=== PATIENT | male | born 1960 | race Caucasian/White ===

== ENCOUNTER → 2017-02-03 | Outpatient (CLI) | payer BC ==
[~2017-02-03] MED LIST: NAPR500T PO; PRIL20TA2 PO; ROBA500T PO
[2017-02-03 14:17] LABS: BASO # 0.1 K/mm3 (0.0-0.2); BASO % 0.5 % (0.0-1.0); EOS # 0.2 K/mm3 (0.0-0.50); EOS % 1.4 % (0.0-3.0); LARGE UNSTAINED CELL # 0.3 K/mm3 (0.0-0.4); LARGE UNSTAINED CELL % 2.3 % (0.0-4.0); LYMPH # 7.8 K/mm3 (1.5-4.5); LYMPH % 53.9 % (24.0-44.0); MEAN CORPUSCULAR HEMOGLOBIN 31.9 pg (27.0-33.0); MEAN CORPUSCULAR HGB CONC 34.3 g/dl (32.0-36.5); MEAN CORPUSCULAR VOLUME 92.9 fl (80.0-96.0); MONO # 0.5 K/mm3 (0.0-0.8); MONO % 3.5 % (0.0-5.0); NEUTROPHILS # 5.3 K/mm3 (1.8-7.7); NEUTROPHILS % 38.4 % (36.0-66.0); PLATELET COUNT, AUTOMATED 212 k/mm3 (150-450); RED CELL DISTRIBUTION WIDTH 12.6 % (11.5-14.5)
[2017-02-03 14:18] LABS: WHITE BLOOD COUNT 13.8 K/mm3 (4.0-10.0)
[2017-02-03 14:42] LABS: ALBUMIN/GLOBULIN RATIO 1.33 (1.00-1.93); ALKALINE PHOSPHATASE 58 U/L (45-117); ALT/SGPT 34 U/L (12-78); ANION GAP 9 MEQ/L (8-16); AST/SGOT 15 U/L (15-37); BILIRUBIN,TOTAL 0.7 MG/DL (0.2-1.0); BLOOD UREA NITROGEN 17 MG/DL (7-18); CALCIUM LEVEL 9.3 MG/DL (8.5-10.1); CARBON DIOXIDE LEVEL 26 MEQ/L (21-32); CHLORIDE LEVEL 101 MEQ/L (98-107); CHOLESTEROL LEVEL 198 MG/DL (<200); GLOMERULAR FILTRATION RATE > 60.0 (>56); GLUCOSE, FASTING 85 MG/DL (70-105); SODIUM LEVEL 136 MEQ/L (136-145); TRIGLYCERIDES LEVEL 83 MG/DL (<150)
== END ==
LOC: M SMT 08:20
PROVIDERS: ATTEND Family Medicine
DX: Z12.5 Encounter for screening for malignant neoplasm of prostate (principal); Z13.29 Encounter for screening for other suspected endocrine disorder; Z13.0 Encounter for screening for diseases of the blood and blood-forming organs and certain disorders involving the immune mechanism; Z13.220 Encounter for screening for lipoid disorders; F52.21 Male erectile disorder
CPT/HCPCS: 36415; 80053; 80061; 84402; 84403; 84443; 85025; G0103

== ENCOUNTER 2017-02-15 07:47 | Emergency (ER) | payer OTHER, BC ==
[~2017-02-15] VITALS: Ht 165.1 cm; Wt 74.1 kg
[2017-02-15] MEDS ORDERED: PRIL20TA2 PO (08:03)
[2017-02-15 09:14] VITALS: BP 170/84
[2017-02-15] MEDS ORDERED: ROBA500T PO (09:16)
[2017-02-15] MEDS ORDERED: NAPR500T PO (09:16)
== END 2017-02-15 09:25 | disposition home or self-care (01) ==
LOC: M ED 07:47
DX: M62.830 Muscle spasm of back (principal); V49.40XA Driver injured in collision with unspecified motor vehicles in traffic accident, initial encounter; Y92.410 Unspecified street and highway as the place of occurrence of the external cause; K21.9 Gastro-esophageal reflux disease without esophagitis; Z79.899 Other long term (current) drug therapy

== ENCOUNTER 2018-01-17 17:38 | Emergency (ER) | payer BC, OTHER ==
[2018-01-17 21:07] LABS: CHOLESTEROL LEVEL 211 MG/DL (<200); CHOLESTEROL RISK RATIO 3.296 (<5); HDL CHOLESTEROL 64 MG/DL (>40); LDL CHOLESTEROL 130.2 MG/DL (<100); NON-HDL-C 147 MG/DL; TRIGLYCERIDES LEVEL 84 MG/DL (<150)
== END 2018-01-17 21:22 | disposition home or self-care (01) ==
LOC: M ED 17:38
DX: S16.1XXA Strain of muscle, fascia and tendon at neck level, initial encounter (principal); R00.1 Bradycardia, unspecified; X58.XXXA Exposure to other specified factors, initial encounter; Y92.9 Unspecified place or not applicable; Y93.9 Activity, unspecified; Y99.9 Unspecified external cause status; K21.9 Gastro-esophageal reflux disease without esophagitis; Z79.899 Other long term (current) drug therapy
CPT/HCPCS: 70450

== ENCOUNTER → 2018-09-30 | Outpatient (CLI) | payer BC ==
[~2018-09-30] MED LIST changes: +NAPR-50 PO; -NAPR500T PO
[2018-09-30 18:26] LABS: ALBUMIN 4.1 GM/DL (3.2-5.2); ALT/SGPT 43 U/L (12-78); BILIRUBIN,TOTAL 0.7 MG/DL (0.2-1.0); BLOOD UREA NITROGEN 14 MG/DL (7-18); CALCIUM LEVEL 8.8 MG/DL (8.5-10.1); CARBON DIOXIDE LEVEL 29 MEQ/L (21-32); CHLORIDE LEVEL 105 MEQ/L (98-107); CREATININE FOR GFR 1.05 MG/DL (0.70-1.30); GLOMERULAR FILTRATION RATE > 60.0 (>56); GLUCOSE, FASTING 88 MG/DL (70-100); POTASSIUM SERUM 4.3 MEQ/L (3.5-5.1); SODIUM LEVEL 141 MEQ/L (136-145); URIC ACID 5.2 MG/DL (3.5-7.2)
[2018-09-30 18:53] LABS: HEMATOCRIT 47.5 % (42.0-52.0); HEMOGLOBIN 15.8 g/dl (13.5-17.5); MEAN CORPUSCULAR HGB CONC 33.3 g/dl (32.0-36.5); MEAN CORPUSCULAR VOLUME 93.1 fl (80.0-96.0); PLATELET COUNT, AUTOMATED 252 10^3/uL (150-450)
[2018-09-30 19:08] LABS: WHITE BLOOD COUNT 18.6 10^3/uL (4.0-10.0)
[2018-09-30 19:45] LABS: ATYPICAL LYMPH 7 % (0-5); LYMPHOCYTES 64 % (16-52); MONOCYTES 1 % (0-8); NEUTROPHILS 28 % (35-75); PLATELET ESTIMATE NORMAL (NORMAL)
[2018-09-30 19:51] LABS: ERYTHROCYTE SEDIMENTATION RATE 1 mm/hr (0-20)
--- NOTE | 2018-10-01 09:52 | REP ---
LEFT FOOT SERIES, FOUR VIEWS: Four view of the left foot performed. No fracture or dislocation is seen. I see no intrinsic osseous pathology. I do not see significant arthritic change. IMPRESSION: Negative left foot series. Electronically Signed by Chilo Mazariegos MD 10/01/2018 10:39 A
== END ==
LOC: M WUC 11:36
PROVIDERS: ATTEND Physician Assistant
DX: M79.672 Pain in left foot (principal)

== ENCOUNTER 2018-10-31 10:05 | Day surgery (SDC) | payer BC ==
[~2018-10-31] VITALS: Ht 167.6 cm; Wt 77.5 kg
[~2018-10-31 10:05] MED LIST changes: -NAPR-50 PO; +NAPR-837 PO; +NS 1,000 ML IV ONE
[2018-10-31] MEDS ORDERED: PROPOFOL 200 MG/20 ML VIAL As Ordered ONE ×4 (12:21→12:50)
[2018-10-31] MEDS ORDERED: LIDOCAINE 2% INJ 100 MG/5 ML SDV (FOR ANES.) As Ordered ONE (12:21)
--- NOTE | 2018-10-31 13:02 | ROOR ---
Patient Name: Juan Cordova Procedure Date: 10/31/2018 12:20 PM Date of : 1960 Age: 58 Room: [facility] Gender: Male Note Status: Finalized Procedure: Upper GI endoscopy Indications: Heartburn, Suspected gastro-esophageal reflux disease Providers: Kevin Epperson MD Referring MD: Ernestine ARNETT DO Requesting Provider: Medicines: Monitored Anesthesia Care Complications: No immediate complications. Procedure: Pre-Anesthesia Assessment: - Prior to the procedure, a History and Physical was performed, and patient medications and allergies were reviewed. The patient is competent. The risks and benefits of the procedure and the sedation options and risks were discussed with the patient. All questions were answered and informed consent was obtained. Patient identification and proposed procedure were verified by the physician, the nurse and the anesthesiologist in the endoscopy suite. Mental Status Examination: alert and oriented. Airway Examination: normal oropharyngeal airway and neck mobility. Respiratory Examination: clear to auscultation. CV Examination: normal. Prophylactic Antibiotics: The patient does not require prophylactic antibiotics. Prior Anticoagulants: The patient has taken no previous anticoagulant or antiplatelet agents. ASA Grade Assessment: I - A normal, healthy patient. After reviewing the risks and benefits, the patient was deemed in satisfactory condition to undergo the procedure. The anesthesia plan was to use monitored anesthesia care (MAC). Immediately prior to administration of medications, the patient was re-assessed for adequacy to receive sedatives. The heart rate, respiratory rate, oxygen saturations, blood pressure, adequacy of pulmonary ventilation, and response to care were monitored throughout the procedure. The physical status of the patient was re-assessed after the procedure. The Endoscope was introduced through the mouth, and advanced to the third part of duodenum. The upper GI endoscopy was accomplished without difficulty. The patient tolerated the procedure well. Findings: The examined esophagus was normal. The Z-line was regular and was found 38 cm from the incisors. A few 6 to 10 mm pedunculated polyps with no bleeding and no stigmata of recent bleeding were found in the gastric fundus. The polyp was removed with a cold snare. Resection and retrieval were complete. Estimated blood loss was minimal. The examined duodenum was normal. Impression: - Normal esophagus. - Z-line regular, 38 cm from the incisors. - A few gastric polyps. Resected and retrieved. - Normal examined duodenum. Recommendation: - Discharge patient to home (ambulatory). - Continue present medications. - Await pathology results. Kevin Epperson MD Kevin Epperson MD 10/31/2018 1:01:32 PM Electronically signed by Kevin Epperson MD Number of Addenda: 0 Note Initiated On: 10/31/2018 12:20 PM Estimated Blood Loss: Estimated blood loss was minimal.
--- NOTE | 2018-10-31 13:04 | ROOR ---
Patient Name: Juan Cordova Procedure Date: 10/31/2018 12:23 PM Date of : 1960 Age: 58 Room: [facility] Gender: Male Note Status: Finalized Procedure: Colonoscopy Indications: Screening for colorectal malignant neoplasm Providers: Kevin Epperson MD Referring MD: Ernestine ARNETT DO Requesting Provider: Medicines: Monitored Anesthesia Care Complications: No immediate complications. Procedure: Pre-Anesthesia Assessment: - Prior to the procedure, a History and Physical was performed, and patient medications and allergies were reviewed. The patient is competent. The risks and benefits of the procedure and the sedation options and risks were discussed with the patient. All questions were answered and informed consent was obtained. Patient identification and proposed procedure were verified by the physician, the nurse and the anesthesiologist in the endoscopy suite. Mental Status Examination: alert and oriented. Airway Examination: normal oropharyngeal airway and neck mobility. Respiratory Examination: clear to auscultation. CV Examination: normal. Prophylactic Antibiotics: The patient does not require prophylactic antibiotics. Prior Anticoagulants: The patient has taken no previous anticoagulant or antiplatelet agents. ASA Grade Assessment: I - A normal, healthy patient. After reviewing the risks and benefits, the patient was deemed in satisfactory condition to undergo the procedure. The anesthesia plan was to use monitored anesthesia care (MAC). Immediately prior to administration of medications, the patient was re-assessed for adequacy to receive sedatives. The heart rate, respiratory rate, oxygen saturations, blood pressure, adequacy of pulmonary ventilation, and response to care were monitored throughout the procedure. The physical status of the patient was re-assessed after the procedure. The Colonoscope was introduced through the anus and advanced to the cecum, identified by appendiceal orifice and ileocecal valve. The colonoscopy was performed without difficulty. The patient tolerated the procedure well. The quality of the bowel preparation was good. Findings: The perianal and digital rectal examinations were normal. A diminutive polyp was found in the cecum. The polyp was flat. The polyp was removed with a jumbo cold forceps. Resection and retrieval were complete. Estimated blood loss was minimal. The colon (entire examined portion) appeared normal. No additional abnormalities were found on retroflexion. Impression: - One diminutive polyp in the cecum, removed with a jumbo cold forceps. Resected and retrieved. - The entire examined colon is normal. Recommendation: - Discharge patient to home (ambulatory). - Repeat colonoscopy in 10 years for screening purposes. - Telephone my office for pathology results in 1 week. Kevin Epperson MD Kevin Epperson MD 10/31/2018 1:04:20 PM Electronically signed by Kevin Epperson MD Number of Addenda: 0 Note Initiated On: 10/31/2018 12:23 PM Estimated Blood Loss: Estimated blood loss was minimal.
[2018-10-31 15:15] VITALS: BP 128/84
== END 2018-10-31 13:45 | disposition home or self-care (01) ==
LOC: M OPP 10:05
PROVIDERS: ATTEND Surgery
DX: D12.0 Benign neoplasm of cecum (principal); R12 Heartburn; K31.7 Polyp of stomach and duodenum; Z12.11 Encounter for screening for malignant neoplasm of colon

== ENCOUNTER → 2019-09-28 | Outpatient (REF) | payer BC ==
[~2019-09-28] MED LIST changes: -NS 1,000 ML IV ONE
[2019-09-28 16:14] LABS: BASO % 0.2 % (0.0-1.0); EOS # 0.2 10^3/uL (0.0-0.5); EOS % 1.2 % (0.0-3.0); HEMATOCRIT 48.6 % (42.0-52.0); HEMOGLOBIN 16.3 g/dl (13.5-17.5); LYMPH % 74.8 % (24.0-44.0); MEAN CORPUSCULAR HEMOGLOBIN 31.2 pg (27.0-33.0); MEAN CORPUSCULAR HGB CONC 33.5 g/dl (32.0-36.5); MEAN CORPUSCULAR VOLUME 93.1 fl (80.0-96.0); MONO # 0.7 10^3/uL (0.0-0.8); MONO % 4.5 % (0.0-5.0); NEUTROPHILS # 3.1 10^3/uL (1.5-8.5); NEUTROPHILS % 19.1 % (36.0-66.0); PLATELET COUNT, AUTOMATED 212 10^3/uL (150-450); RED BLOOD COUNT 5.22 10^6/uL (4.30-6.10)
[2019-09-28 16:17] LABS: LYMPH # 11.9 10^3/uL (1.5-5.0); WHITE BLOOD COUNT 15.9 10^3/uL (4.0-10.0)
[2019-09-28 16:18] LABS: ALBUMIN 3.7 GM/DL (3.2-5.2); ALT/SGPT 40 U/L (12-78); BILIRUBIN,DIRECT 0.2 MG/DL (0.0-0.2); BILIRUBIN,TOTAL 0.8 MG/DL (0.2-1.0); BLOOD UREA NITROGEN 13 MG/DL (7-18); CALCIUM LEVEL 8.9 MG/DL (8.5-10.1); CARBON DIOXIDE LEVEL 30 MEQ/L (21-32); CHLORIDE LEVEL 108 MEQ/L (98-107); CREATININE FOR GFR 0.79 MG/DL (0.70-1.30); GLOMERULAR FILTRATION RATE > 60.0 (>56); GLUCOSE, FASTING 96 MG/DL (70-100); LIPASE 97 U/L (73-393); POTASSIUM SERUM 3.9 MEQ/L (3.5-5.1); SODIUM LEVEL 141 MEQ/L (136-145); TOTAL PROTEIN 6.8 GM/DL (6.4-8.2)
== END ==
LOC: M LABDRAW1 14:17
PROVIDERS: ATTEND Physician Assistant
DX: R10.84 Generalized abdominal pain (principal)

== ENCOUNTER → 2019-10-01 | Outpatient (CLI) | payer BC ==
[~2019-10-01] MED LIST changes: +GASTROGRAFIN SOLUTION 30ML (Q9963) As Ordered ONE; +ISOVUE-370 76% 100ML VIAL (Q9967) As Ordered ONE
--- NOTE | 2019-10-01 14:39 | REP ---
Clinical: Abdominal pain and bloating. Technique: Axial contrast enhanced images from the lung bases to the pubic symphysis with coronal and sagittal re-formations using oral (per protocol) and 100 ml Isovue 370 intravenous contrast material. Comparison: None. Findings: Lung bases demonstrate centrally calcified 2 cm lesion in the right lower lobe consistent with granuloma or benign hamartoma. Liver demonstrates 1.2 cm presumed cyst in the left lobe. Spleen, pancreas, gallbladder, bilateral adrenal glands and kidneys are normal. The enteric system is without obstruction or acute inflammatory process. Focal mass versus stool ball the cecum cannot be differentiated. Normal terminal ileum and evidence of prior appendectomy noted. Sigmoid diverticula are appreciated without evidence for acute diverticulitis. Pelvis demonstrates normal bladder and mild prostatomegaly. No ascites. No free air. No adenopathy. Abdominal aorta without aneurysm or dissection. Musculoskeletal structures demonstrate age-related degenerative changes and chronic L5 spondylolysis. Impression: 1. 1.2 cm presumed cyst in the left hepatic lobe may be followed by ultrasound if necessary. 2. Focal 2 cm mass versus stool ball in the cecum. Consider colonoscopy or barium enema for further evaluation. 3. Sigmoid diverticula without acute diverticulitis. 4. Chronic L5 spondylolysis and multilevel degenerative spondylosis. 5. No ascites, focal inflammatory stranding, free air or adenopathy. Electronically Signed by Marko Choudhary MD 10/01/2019 02:30 P
== END ==
LOC: M RAD 12:01
PROVIDERS: ATTEND Physician Assistant
DX: R10.9 Unspecified abdominal pain (principal)
CPT/HCPCS: 74177; Q9963; Q9967

== ENCOUNTER 2019-10-11 07:43 | Day surgery (SDC) | payer BC ==
[~2019-10-11] VITALS: Ht 167.6 cm; Wt 75.2 kg
[~2019-10-11 07:43] MED LIST changes: -GASTROGRAFIN SOLUTION 30ML (Q9963) As Ordered ONE; -ISOVUE-370 76% 100ML VIAL (Q9967) As Ordered ONE; +LR 1,000 ML IV ONE
[2019-10-11] MEDS ORDERED: LIDOCAINE 2% INJ 100 MG/5 ML SDV (FOR ANES.) As Ordered ONE (11:14)
[2019-10-11] MEDS ORDERED: propofoL 200 MG/20 ML VIAL As Ordered ONE (11:14)
--- NOTE | 2019-10-11 11:32 | ROOR ---
Patient Name: Juan Cordova Procedure Date: 10/11/2019 10:48 AM Date of : 1960 Age: 59 Room: [facility] Gender: Male Note Status: Finalized Procedure: Colonoscopy Indications: Abnormal CT of the GI tract Providers: Rajan Lisa Jr, MD Referring MD: Rajan Lisa Jr, MD Requesting Provider: Medicines: Propofol per Anesthesia Complications: No immediate complications. Procedure: Pre-Anesthesia Assessment: - Prior to the procedure, a History and Physical was performed, and patient medications and allergies were reviewed. The patient is competent. The risks and benefits of the procedure and the sedation options and risks were discussed with the patient. All questions were answered and informed consent was obtained. Patient identification and proposed procedure were verified by the physician and the nurse in the pre-procedure area and in the procedure room. Mental Status Examination: alert and oriented. Airway Examination: normal oropharyngeal airway and neck mobility. Respiratory Examination: clear to auscultation. CV Examination: normal. ASA Grade Assessment: II - A patient with mild systemic disease. After reviewing the risks and benefits, the patient was deemed in satisfactory condition to undergo the procedure. The anesthesia plan was to use moderate sedation / analgesia (conscious sedation). Immediately prior to administration of medications, the patient was re-assessed for adequacy to receive sedatives. The heart rate, respiratory rate, oxygen saturations, blood pressure, adequacy of pulmonary ventilation, and response to care were monitored throughout the procedure. The physical status of the patient was re-assessed after the procedure. The Colonoscope was introduced through the anus and advanced to the cecum, identified by appendiceal orifice and ileocecal valve. The colonoscopy was performed without difficulty. The patient tolerated the procedure well. The quality of the bowel preparation was adequate. Findings: The rectum, recto-sigmoid colon, descending colon, transverse colon, hepatic flexure, ascending colon, cecum, appendiceal orifice and ileocecal valve appeared normal. A few small-mouthed diverticula were found in the sigmoid colon. External and internal hemorrhoids were found during endoscopy. The hemorrhoids were moderate. Impression: - The rectum, recto-sigmoid colon, descending colon, transverse colon, hepatic flexure, ascending colon, cecum, appendiceal orifice and ileocecal valve are normal. - Diverticulosis in the sigmoid colon. - External and internal hemorrhoids. - No specimens collected. Recommendation: - Repeat colonoscopy in 5 years for surveillance. Rajan Lisa MD Rajan Lisa Jr, MD 10/11/2019 11:32:02 AM Electronically signed by Rajan Lisa Jr, MD Number of Addenda: 0 Note Initiated On: 10/11/2019 10:48 AM Estimated Blood Loss: Estimated blood loss: none.
[2019-10-11 12:10] VITALS: BP 121/74
== END 2019-10-11 12:23 | disposition home or self-care (01) ==
LOC: M OPP 07:43
PROVIDERS: ATTEND Surgery
DX: K64.8 Other hemorrhoids (principal); K57.30 Diverticulosis of large intestine without perforation or abscess without bleeding; R93.3 Abnormal findings on diagnostic imaging of other parts of digestive tract

== ENCOUNTER → 2019-10-26 | Outpatient (CLI) | payer BC ==
[~2019-10-26] MED LIST changes: -LR 1,000 ML IV ONE
[2019-10-26 17:09] LABS: BASO # 0.1 10^3/uL (0.0-0.2); BASO % 0.3 % (0.0-1.0); EOS # 0.2 10^3/uL (0.0-0.5); EOS % 0.8 % (0.0-3.0); HEMATOCRIT 47.4 % (42.0-52.0); HEMOGLOBIN 15.5 g/dl (13.5-17.5); LYMPH # 15.7 10^3/uL (1.5-5.0); LYMPH % 73.8 % (24.0-44.0); MEAN CORPUSCULAR HEMOGLOBIN 30.6 pg (27.0-33.0); MEAN CORPUSCULAR HGB CONC 32.7 g/dl (32.0-36.5); MEAN CORPUSCULAR VOLUME 93.5 fl (80.0-96.0); MONO # 0.6 10^3/uL (0.0-0.8); NEUTROPHILS # 4.7 10^3/uL (1.5-8.5); PLATELET COUNT, AUTOMATED 278 10^3/uL (150-450); RED BLOOD COUNT 5.07 10^6/uL (4.30-6.10)
[2019-10-26 17:12] LABS: WHITE BLOOD COUNT 21.3 10^3/uL (4.0-10.0)
== END ==
LOC: M WUC 13:37
PROVIDERS: ATTEND Physician Assistant
DX: D72.829 Elevated white blood cell count, unspecified (principal)

== ENCOUNTER → 2019-10-30 | Outpatient (CLI) | payer BC | LOC: M LAB 08:25 | PROVIDERS: ATTEND Physician Assistant | DX: D72.829 Elevated white blood cell count, unspecified (principal) ==

== ENCOUNTER → 2020-10-24 | Outpatient (CLI) | payer BC ==
[2020-10-24 13:11] LABS: BASO # 0.1 10^3/uL (0.0-0.2); BASO % 0.3 % (0.0-1.0); EOS # 0.3 10^3/uL (0.0-0.5); EOS % 1.1 % (0.0-3.0); HEMATOCRIT 49.1 % (42.0-52.0); HEMOGLOBIN 16.1 g/dl (13.5-17.5); LYMPH % 83.7 % (24.0-44.0); MEAN CORPUSCULAR HEMOGLOBIN 30.3 pg (27.0-33.0); MEAN CORPUSCULAR HGB CONC 32.8 g/dl (32.0-36.5); MEAN CORPUSCULAR VOLUME 92.5 fl (80.0-96.0); MONO # 0.5 10^3/uL (0.0-0.8); MONO % 2.2 % (2.0-8.0); NEUTROPHILS % 12.5 % (36.0-66.0); PLATELET COUNT, AUTOMATED 267 10^3/uL (150-450); RED BLOOD COUNT 5.31 10^6/uL (4.30-6.10); WHITE BLOOD COUNT 23.8 10^3/uL (4.0-10.0)
[2020-10-24 13:42] LABS: ALBUMIN 3.8 GM/DL (3.2-5.2); ALT/SGPT 36 U/L (12-78); BILIRUBIN,TOTAL 0.7 MG/DL (0.2-1.0); BLOOD UREA NITROGEN 17 MG/DL (7-18); CALCIUM LEVEL 9.2 MG/DL (8.8-10.2); CARBON DIOXIDE LEVEL 27 MEQ/L (21-32); CHLORIDE LEVEL 109 MEQ/L (98-107); CHOLESTEROL LEVEL 184 MG/DL (<200); CREATININE FOR GFR 0.84 MG/DL (0.70-1.30); FREE T4 1.27 NG/DL (0.76-1.46); GLOMERULAR FILTRATION RATE > 60.0 (>49); GLUCOSE, FASTING 111 MG/DL (70-100); HDL CHOLESTEROL 50 MG/DL (>40); LDL CHOLESTEROL 117 MG/DL (<100); NON-HDL-C 134 MG/DL; POTASSIUM SERUM 4.2 MEQ/L (3.5-5.1); SODIUM LEVEL 140 MEQ/L (136-145); TOTAL PROTEIN 6.9 GM/DL (6.4-8.2); TRIGLYCERIDES LEVEL 85 MG/DL (<150)
[2020-10-26 07:06] LABS: PSA TOTAL 3.4 ng/mL (0.0-4.0)
== END ==
LOC: M PLALAB 10:30
PROVIDERS: ATTEND Physician Assistant
DX: C91.11 Chronic lymphocytic leukemia of B-cell type in remission (principal); Z13.220 Encounter for screening for lipoid disorders; Z13.29 Encounter for screening for other suspected endocrine disorder; Z12.5 Encounter for screening for malignant neoplasm of prostate

== ENCOUNTER → 2021-04-09 | Outpatient (CLI) | payer BC ==
[2021-04-09 11:41] LABS: ALT/SGPT 35 U/L (12-78); BLOOD UREA NITROGEN 16 MG/DL (7-18); CARBON DIOXIDE LEVEL 27 MEQ/L (21-32); CHLORIDE LEVEL 107 MEQ/L (98-107); CHOLESTEROL LEVEL 192 MG/DL (<200); CHOLESTEROL RISK RATIO 3.096 (<5); CREATININE FOR GFR 0.78 MG/DL (0.70-1.30); FREE T4 1.35 NG/DL (0.76-1.46); GLOMERULAR FILTRATION RATE > 60.0 (>49); GLUCOSE, FASTING 86 MG/DL (70-100); HDL CHOLESTEROL 62 MG/DL (>40); LDL CHOLESTEROL 118 MG/DL (<100); NON-HDL-C 130 MG/DL; POTASSIUM SERUM 4.3 MEQ/L (3.5-5.1); SODIUM LEVEL 139 MEQ/L (136-145); TOTAL PROTEIN 6.8 GM/DL (6.4-8.2); TRIGLYCERIDES LEVEL 59 MG/DL (<150)
[2021-04-11 00:07] LABS: PSA TOTAL 3.4 ng/mL (0.0-4.0)
== END ==
LOC: M PLALAB 08:14
PROVIDERS: ATTEND Physician Assistant
DX: C91.11 Chronic lymphocytic leukemia of B-cell type in remission (principal)

== ENCOUNTER 2021-05-02 05:59 | Emergency (ER) | payer BC ==
[~2021-05-02] VITALS: Ht 167.6 cm; Wt 75.0 kg
--- OUTSIDE RECORDS SUMMARY | 2021-05-02 06:07 | CCD | Continuity of Care Document ---
Author Author Juan FAJARDO PA Organization Unknown Address [address] [place] [address] 6 [address] [place] [address] Phone [phone] Care Team Providers Care Custom Tailor Name Role Phone Ernestine Drake D.O. AUT[facility] HerbsterDinah M.D. [facility] [phone] Gabriela Reinoso MD [facility] [phone] [facility] - Physical Therapy [facility]M [phone] Problems Active Problems Provider Date Chronic lymphoid leukemia in remission LAURA Lockwood Onset: 10/27/2020 Social History Type Date Description Comments Sex Unknown ETOH Use Occasionally consumes alcohol Tobacco Use Start: Unknown Patient has never smoked Recreational Drug Use Denies Drug Use Smoking Status Reviewed: 04/08/21 Patient has never smoked Exercise Type/Frequency Does not exercise Sun Exposure Uses sunscreen Seat Belt/Car Seat Always uses seat belt Allergies, Adverse Reactions, Alerts Description No Known Drug Allergies Medications Active Medications SIG Qnty Indications Ordering Provide r Date Prilosec OTC 20mg Tablets DR 1 pill daily in the morning on an empty stomach 30tabs Ernestine Contreras D.O. 01/21/2017 Immunizations Description No Information Available Vital Signs Date Vital Result Comment 04/08/2021 11:42am BP Systolic 124 mmHg BP Diastolic 68 mmHg Height 64.8 inches 5'4.80" Weight 164.25 lb BMI (Body Mass Index) 27.5 kg/m2 Heart Rate 83 /min Respiratory Rate 18 /min Body Temperature 98.3 F O2 % BldC Oximetry 96 % [place] Body Weight 130 lb 08/18/2020 9:22am BP Systolic 126 mmHg BP Diastolic 72 mmHg Height 64.8 inches 5'4.80" Weight 168.00 lb BMI (Body Mass Index) 28.1 kg/m2 Heart Rate 78 /min Respiratory Rate 18 /min Body Temperature 98.0 F O2 % BldC Oximetry 96 % [place] Body Weight 130 lb Results Test Acquired Date Facility Test Result H/L Range Note Comprehensive Metabolic Profil 04/09/2021 [facility] Outpa tient Testing (Registration) [address] [place] [address] [phone] Glucose, Fasting 86 mg/dL Normal 70-100 Blood Urea Nitrogen 16 mg/dL Normal 7-18 Creatinine For GFR 0.78 mg/dL Normal 0.70-1.30 Glomerular Filtration Rate > 60.0 Normal >49 1 Sodium Level 139 mEq/L Normal 136-145 Potassium Serum 4.3 mEq/L Normal 3.5-5.1 Chloride Level 107 mEq/L Normal 98-107 Carbon Dioxide Level 27 mEq/L Normal 21-32 Anion Gap 5 mEq/L Low 8-16 Calcium Level 9.0 mg/dL Normal 8.8-10.2 Ast/Sgot 18 U/L Normal 7-37 Alt/SGPT 35 U/L Normal 12-78 Alkaline Phosphatase 61 U/L Normal 45-117 Bilirubin,Total 1.0 mg/dL Normal 0.2-1.0 Total Protein 6.8 GM/DL Normal 6.4-8.2 Albumin 4.0 GM/DL Normal 3.2-5.2 Albumin/Globulin Ratio 1.4 Normal PSA Free & Total 04/09/2021 [facility] Outpatient Testi ng (Registration) [address] [place] [id number] [phone] PSA Total 3.4 ng/mL Normal 0.0-4.0 2 PSA Comment (SEE NOTE) Normal . 3 Lipid Panel 04/09/2021 [facility] Outpatient Testi ng (Registration) [address] [place] [address] [phone] Triglycerides Level 59 mg/dL Normal <150 Cholesterol Level 192 mg/dL Normal <200 HDL Cholesterol 62 mg/dL Normal >40 LDL Cholesterol 118 mg/dL High <100 Non-HDL-C 130 mg/dL Normal Cholesterol Risk Ratio 3.096 Normal <5 FT4&TSH Panel 04/09/2021 [facility] Outpatient Testi ng (Registration) [address] [place] [address] [phone] Thyroid Stimulating Hormone 1.760 uIU/ML Normal 0. 358-3.740 Free T4 1.35 ng/dL Normal 0.76-1.46 CBC With Differential 10/24/2020 [facility] Outpatient Reanna ting (Registration) [address] [place] [address] [phone] White Blood Count 23.8 10 High 4.0-10.0 4 Red Blood Count 5.31 10 Normal 4.30-6.10 Hemoglobin 16.1 g/dL Normal 13.5-17.5 Hematocrit 49.1 % Normal 42.0-52.0 Mean Corpuscular Volume 92.5 fl Normal 80.0-96.0 Mean Corpuscular Hemoglobin 30.3 pg Normal 27.0-33.0 Mean Corpuscular HGB Conc 32.8 g/dL Normal 32.0-36.5 Red Cell Distribution Width 12.4 % Normal 11.5-14.5 Platelet Count, Automated 267 10 Normal 150-450 Neutrophils % 12.5 % Low 36.0-66.0 Lymph % 83.7 % High 24.0-44.0 [place] % 2.2 % Normal 2.0-8.0 Eos % 1.1 % Normal 0.0-3.0 Baso % 0.3 % Normal 0.0-1.0 Immature Granulocyte % 0.2 % Normal 0-3.0 Nucleated Red Blood Cell % 0.0 % Normal 0-0 Neutrophils # 3.0 10 Normal 1.5-8.5 Lymph # 20.0 10 High 1.5-5.0 [place] # 0.5 10 Normal 0.0-0.8 Eos # 0.3 10 Normal 0.0-0.5 Baso # 0.1 10 Normal 0.0-0.2 Comprehensive Metabolic Profil 10/24/2020 [facility] Outpa tient Testing (Registration) [address] [place] [address] [phone] Glucose, Fasting 111 mg/dL High 70-100 Blood Urea Nitrogen 17 mg/dL Normal 7-18 Creatinine For GFR 0.84 mg/dL Normal 0.70-1.30 Glomerular Filtration Rate > 60.0 Normal >49 5 Sodium Level 140 mEq/L Normal 136-145 Potassium Serum 4.2 mEq/L Normal 3.5-5.1 Chloride Level 109 mEq/L High 98-107 Carbon Dioxide Level 27 mEq/L Normal 21-32 Anion Gap 4 mEq/L Low 8-16 Calcium Level 9.2 mg/dL Normal 8.8-10.2 Ast/Sgot 13 U/L Normal 7-37 Alt/SGPT 36 U/L Normal 12-78 Alkaline Phosphatase 77 U/L Normal 45-117 Bilirubin,Total 0.7 mg/dL Normal 0.2-1.0 Total Protein 6.9 GM/DL Normal 6.4-8.2 Albumin 3.8 GM/DL Normal 3.2-5.2 Albumin/Globulin Ratio 1.2 Normal Lipid Panel 10/24/2020 [facility] Outpatient Testi ng (Registration) [address] [place] [address] [phone] Triglycerides Level 85 mg/dL Normal <150 Cholesterol Level 184 mg/dL Normal <200 HDL Cholesterol 50 mg/dL Normal >40 LDL Cholesterol 117 mg/dL High <100 Non-HDL-C 134 mg/dL Normal Cholesterol Risk Ratio 3.680 Normal <5 Laboratory test finding 10/24/2020 [facility] Outpatient T esting (Registration) [address] [place] [phone] Thyroid Stimulating Hormone 1.100 uIU/ML Normal 0. 358-3.740 Free T4 1.27 ng/dL Normal 0.76-1.46 PSA Free & Total 10/24/2020 [facility] Outpatient Testi ng (Registration) [address] [place] [phone] [phone] PSA Total 3.4 ng/mL Normal 0.0-4.0 6 PSA Comment (SEE NOTE) Normal . 7 1 Units are mL/min/1.73 m2 Chronic Kidney Disease Staging per NKF: Stage I & II GFR >=60 Normal to Mildly Decreased Stage III GFR 30-59 Moderately Decreased Stage IV GFR 15-29 Severely Decreased Stage V GFR <15 Very Little GFR Left ESRD GFR <15 on PIZZAMAKER 2 Elisabeth ECLIA methodology. . According to the [employer], Serum PSA should decrease and remain at undetectable levels after radical prostatectomy. The AUA defines biochemical recurrence as an initial PSA value 0.2 ng/mL or greater followed by a subsequent confirmatory PSA value 0.2 ng/mL or greater. Values obtained with different assay methods or kits cannot be used interchangeably. Results cannot be interpreted as absolute evidence of the presence or absence of malignant disease. 3 . The percent free PSA is performed on a reflex basis only when the total PSA is between 4.0 and 10.0 ng/mL. Performed at: [id number] Thru Order Taker: Paulina Sheehan MD, Phone: [phone] 4 A Pathologist review of this differential can help in the evaluation of a differential diagnosis. Please order a Pathologist Review (PERISM) if deemed necessary. Results are subject to change if a Pathologist Review is performed. 5 Units are mL/min/1.73 m2 Chronic Kidney Disease Staging per NKF: Stage I & II GFR >=60 Normal to Mildly Decreased Stage III GFR 30-59 Moderately Decreased Stage IV GFR 15-29 Severely Decreased Stage V GFR <15 Very Little GFR Left ESRD GFR <15 on PIZZAMAKER 6 Elisabeth ECLIA methodology. . According to the [employer], Serum PSA should decrease and remain at undetectable levels after radical prostatectomy. The AUA defines biochemical recurrence as an initial PSA value 0.2 ng/mL or greater followed by a subsequent confirmatory PSA value 0.2 ng/mL or greater. Values obtained with different assay methods or kits cannot be used interchangeably. Results cannot be interpreted as absolute evidence of the presence or absence of malignant disease. 7 . The percent free PSA is performed on a reflex basis only when the total PSA is between 4.0 and 10.0 ng/mL. Performed at: [id number] Thru Order Taker: Paulina Sheehan MD, Phone: [phone] Procedures Date Code Description Status 04/08/2021 54066 Preventive Visit Est 40-64 Yrs C ompleted Medical Devices Description No Information Available Encounters Type Date Location Provider Dx Diagnosis Office Visit 04/08/2021 11:20a Family Medicine [facility] LAURA Lockwood Z00.00 Encntr for general adult med ical exam w/o abnormal findings Assessments Date Code Description Provider 04/08/2021 Z00.00 Encounter for genera l adult medical examination without abnormal findings LAURA Lockwood Plan of Treatment Future Appointment(s):* 10/06/2021 9:30 am - LAURA Rodríguez at [facility] Functional Status Description No Information Available Mental Status Description No Information Available Referrals Description No Information Available
--- OUTSIDE RECORDS SUMMARY | 2021-05-02 06:07 | CCD | Continuity of Care Document ---
Author Author Juan FAJARDO PA Organization Unknown Address [address] [place] [address] 6 [address] [place] [address] Phone [phone] Care Team Providers Care Amortization Clerk Name Role Phone Ernestine Drake D.O. AUTM [phone] [place] M.D. AUTM [phone] Gabriela Reinoso MD AUTM [phone] [facility] Physical Therapy - Physical Therapy AUTM [phone] Problems Active Problems Provider Date Chronic lymphoid [...] F O2 % BldC Oximetry 96 % [place] Body Weight 130 lb 08/18/2020 9:22am BP Systolic 126 mmHg BP Diastolic 72 mmHg Height 64.8 inches 5'4.80" Weight 168.00 lb BMI (Body Mass Index) 28.1 kg/m2 Heart Rate 78 /min Respiratory Rate 18 /min Body Temperature 98.0 F O2 % BldC Oximetry 96 % [place] Body Weight 130 lb Results Test Acquired Date Facility Test Result H/L Range Note CBC With Differential 10/24/2020 [facility] Outpatient Reanna ting (Registration) [address] [place] [address] [phone] White Blood Count 23.8 10 High 4.0-10.0 1 Red Blood Count 5.31 10 Normal 4.30-6.10 [...] 36.0-66.0 Lymph % 83.7 % High 24.0-44.0 [place] % 2.2 % Normal 2.0-8.0 Eos % 1.1 % Normal 0.0-3.0 Baso % 0.3 % Normal 0.0-1.0 Immature Granulocyte % 0.2 % Normal 0-3.0 Nucleated Red Blood Cell % 0.0 % Normal 0-0 Neutrophils # 3.0 10 Normal 1.5-8.5 Lymph # 20.0 10 High 1.5-5.0 [place] # 0.5 10 Normal 0.0-0.8 Eos # 0.3 10 Normal 0.0-0.5 Baso # 0.1 10 Normal 0.0-0.2 Comprehensive Metabolic Profil 10/24/2020 [facility] Outpa tient Testing (Registration) [address] [place] [address] [phone] Glucose, Fasting 111 mg/dL High 70-100 Blood Urea Nitrogen 17 mg/dL Normal 7-18 Creatinine For GFR 0.84 mg/dL Normal 0.70-1.30 Glomerular Filtration Rate > 60.0 Normal >49 2 Sodium Level 140 mEq/L Normal 136-145 Potassium [...] Albumin/Globulin Ratio 1.2 Normal Lipid Panel 10/24/2020 [facility] Outpatient Testi ng (Registration) [address] [place] [address]37 [phone] Triglycerides Level 85 mg/dL Normal <150 Cholesterol Level 184 mg/dL Normal <200 HDL Cholesterol 50 mg/dL Normal >40 LDL Cholesterol 117 mg/dL High <100 Non-HDL-C 134 mg/dL Normal Cholesterol Risk Ratio 3.680 Normal <5 Laboratory test finding 10/24/2020 [facility] Outpatient T esting (Registration) [address] [place] [address] [phone] Thyroid Stimulating Hormone 1.100 uIU/ML Normal 0. 358-3.740 Free T4 1.27 ng/dL Normal 0.76-1.46 PSA Free & Total 10/24/2020 [facility] Outpatient Testi ng (Registration) [address] [place] [address]655 [phone] PSA Total 3.4 ng/mL Normal 0.0-4.0 3 PSA Comment (SEE NOTE) Normal . 4 1 A Pathologist review of this differential can help in the evaluation of a differential diagnosis. Please order a Pathologist Review (PERISM) if deemed necessary. Results are subject to change if a Pathologist Review is performed. 2 Units are mL/min/1.73 m2 Chronic Kidney Disease Staging per NKF: Stage I & II GFR >=60 Normal to Mildly Decreased Stage III GFR 30-59 Moderately Decreased Stage IV GFR 15-29 Severely Decreased Stage V GFR <15 Very Little GFR Left ESRD GFR <15 on LINING STUFFER 3 Elisabeth ECLIA methodology. . According to the [place] [employer], Serum PSA should decrease and [...] the presence or absence of malignant disease. 4 . The percent free PSA is performed on a reflex basis only when the total PSA is between 4.0 and 10.0 ng/mL. Performed at: RN - [facility] [address] [id number] Senior Caregiver: Paulina Sheehan MD, Phone: [phone] Procedures Description No Information Available Medical Devices Description No Information Available Encounters Description No Information Available Assessments Date Code Description Provider 04/08/2021 Z00.00 Encounter for genera l adult medical examination without abnormal findings LAURA Lockwood Plan of Treatment Future Appointment(s):* 10/06/2021 9:30 am - LAURA Rodríguez at [facility] 04/08/2021 - LAURA Lockwood* Z00.00 Encounter for general adult medical examination without abnormal findings* New Labs:* Comprehensive Metabolic Profil, Ordered: 04/08/21 * PSA Free & Total, Ordered: 04/08/21 * Lipid Panel, Ordered: 04/08/21 * FT4&TSH Panel, Ordered: 04/08/21 * Comments:* Your exam was unremarkable today. We will check baseline labs. Call for any concerns. * Follow up:* 6 months with Michi. Functional Status Description No Information Available Mental Status Description No Information Available Referrals Description No Information Available
--- OUTSIDE RECORDS SUMMARY | 2021-05-02 06:07 | CCD | Continuity of Care Document ---
Author Author Juan FAJARDO PA Organization Unknown Address [address] [place] [address] 6 [address] [place] [address] Phone [phone] Care Team Providers Care Business Intelligence Administrator Name Role Phone Ernestine Drake D.O. AUTM [phone] [place]Dinah M.D. AUTM [phone] Gabriela Reinoso MD AUTM [phone] [facility] Physical Therapy - Physical Therapy AUTM [phone] Problems Active Problems Provider Date Chronic lymphoid [...] F O2 % BldC Oximetry 96 % [place] Body Weight 130 lb 08/18/2020 9:22am BP Systolic 126 mmHg BP Diastolic 72 mmHg Height 64.8 inches 5'4.80" Weight 168.00 lb BMI (Body Mass Index) 28.1 kg/m2 Heart Rate 78 /min Respiratory Rate 18 /min Body Temperature 98.0 F O2 % BldC Oximetry 96 % [place] Body Weight 130 lb Results Test Acquired Date Facility Test Result H/L Range Note CBC With Differential 10/24/2020 [facility] Outpatient Reanna ting (Registration) [address] [place] [address] [phone] White Blood Count 23.8 10 High 4.0-10.0 [...] 36.0-66.0 Lymph % 83.7 % High 24.0-44.0 [place] % 2.2 % Normal 2.0-8.0 Eos % 1.1 % Normal 0.0-3.0 Baso % 0.3 % Normal 0.0-1.0 Immature Granulocyte % 0.2 % Normal 0-3.0 Nucleated Red Blood Cell % 0.0 % Normal 0-0 Neutrophils # 3.0 10 Normal 1.5-8.5 Lymph # 20.0 10 High 1.5-5.0 [place] # 0.5 10 Normal 0.0-0.8 Eos # 0.3 10 Normal 0.0-0.5 Baso # 0.1 10 Normal 0.0-0.2 Comprehensive Metabolic Profil 10/24/2020 [facility] Outpa tient Testing (Registration) [address] [place] [address] [phone] Glucose, Fasting 111 mg/dL High 70-100 Blood [...] Albumin/Globulin Ratio 1.2 Normal Lipid Panel 10/24/2020 [facility] Outpatient Testi ng (Registration) [address] [place] [address]28 [phone] Triglycerides Level 85 mg/dL Normal <150 Cholesterol Level 184 mg/dL Normal <200 HDL Cholesterol 50 mg/dL Normal >40 LDL Cholesterol 117 mg/dL High <100 Non-HDL-C 134 mg/dL Normal Cholesterol Risk Ratio 3.680 Normal <5 Laboratory test finding 10/24/2020 [facility] Outpatient T esting (Registration) [address] [place] [address]262 [phone] Thyroid Stimulating Hormone 1.100 uIU/ML Normal 0. 358-3.740 Free T4 1.27 ng/dL Normal 0.76-1.46 PSA Free & Total 10/24/2020 [facility] Outpatient Testi ng (Registration) [address] [place] [address]25 [phone] PSA Total 3.4 ng/mL Normal 0.0-4.0 3 [...] Little GFR Left ESRD GFR <15 on ORTHODONTIST ASSISTANT 3 Elisabeth ECLIA methodology. . According to the [place] [employer], Serum PSA should decrease and [...] 10.0 ng/mL. Performed at: RN - [facility] [address] [id number] Care Services Manager: Paulina Sheehan MD, Phone: [phone] Procedures Date Code Description Status 04/08/2021 46648 Preventive Visit Est 40-64 Yrs C ompleted Medical Devices Description No Information Available Encounters Type Date Location Provider Dx Diagnosis Office Visit 04/08/2021 11:20a [facility] LAURA Lockwood Z00.00 Encntr for general adult [...]
--- OUTSIDE RECORDS SUMMARY | 2021-05-02 06:07 | CCD ---
Author Author [facility] Organization [facility] Address Unknown Phone Unavailable Care Team Providers Care Publicist Name Role Phone Carmelina, Vineet PA Unavailable Unavailable Carmelina, Vineet PA Unavailable Unavailable Carmelina, Vineet PA Unavailable Unavailable Carmelina, Vineet PA Unavailable Unavailable Carmelina, Vineet PA Unavailable Unavailable Carmelina, Vineet PA Unavailable Unavailable Carmelina, Vineet PA Unavailable Unavailable Carmelina, Vineet PA Unavailable Unavailable Carmelina, Vineet PA Unavailable Unavailable Carmelina, Vineet PA Unavailable Unavailable Carmelina, Vineet PA Unavailable Unavailable Carmelina, Vineet PA Unavailable Unavailable Carmelina, Vineet PA Unavailable Unavailable Carmelina, Vineet PA Unavailable Unavailable Carmelina, Vineet PA Unavailable Unavailable Carmelina, Vineet PA Unavailable Unavailable Carmelina, Vineet PA Unavailable Unavailable Carmelina, Vineet PA Unavailable Unavailable Carmelina, Vineet PA Unavailable Unavailable Carmelina, Vineet PA Unavailable Unavailable Carmelina, Vineet PA Unavailable Unavailable Carmelina, Vineet PA Unavailable Unavailable Carmelina, Vineet PA Unavailable Unavailable Carmelina, Vineet PA Unavailable Unavailable Carmelina, Vineet PA Unavailable Unavailable Carmelina, Vineet PA Unavailable Unavailable Carmelina, Vineet PA Unavailable Unavailable Carmelina, Vineet PA Unavailable Unavailable Carmelina, Vineet PA Unavailable Unavailable Carmelina, Vineet PA Unavailable Unavailable Carmelina, Vineet PA Unavailable Unavailable Carmelina, Vineet PA Unavailable Unavailable Carmelina, Vineet PA Unavailable Unavailable Carmelina, Vineet PA Unavailable Unavailable Carmelina, Vineet PA Unavailable Unavailable Carmelina, Vineet PA Unavailable Unavailable Carmelina, Vineet PA Unavailable Unavailable Carmelina, Vineet PA Unavailable Unavailable Carmelina, Vineet PA Unavailable Unavailable Carmelina, Vineet PA Unavailable Unavailable Carmelina, Vineet PA Unavailable Unavailable Carmelina, Vineet PA Unavailable Unavailable Carmelina, Vineet PA Unavailable Unavailable Carmelina, Vineet PA Unavailable Unavailable Carmelina, Vineet PA Unavailable Unavailable Carmelina, Vineet PA Unavailable Unavailable Carmelina, Vineet PA Unavailable Unavailable Carmelina, Vineet PA Unavailable Unavailable Carmelina, Vineet PA Unavailable Unavailable Carmelina, Vineet PA Unavailable Unavailable Carmelina, Vineet PA Unavailable Unavailable Carmelina, Vineet PA Unavailable Unavailable Carmelina, Vineet PA Unavailable Unavailable Carmelina, Vineet PA Unavailable Unavailable Re-disclosure Warning The records that you are about to access may contain information from federally-assisted alcohol or drug abuse programs. If such information is present, then the following federally mandated warning applies: This information has been disclosed to you from records protected by federal confidentiality rules (42 CFR part 2). The federal rules prohibit you from making any further disclosure of this information unless further disclosure is expressly permitted by the written consent of the person to whom it pertains or as otherwise permitted by 42 CFR part 2. A general authorization for the release of medical or other information is NOT sufficient for this purpose. The Federal rules restrict any use of the information to criminally investigate or prosecute any alcohol or drug abuse patient.The records that you are about to access may contain highly sensitive health information, the redisclosure of which is protected by Article 27-F of the [facility] Public Health law. If you continue you may have access to information: Regarding HIV / AIDS; Provided by facilities licensed or operated by the [facility] Office of Mental Health; or Provided by the [facility] Office for People With Developmental Disabilities. If such information is present, then the following [facility] mandated warning applies: This information has been disclosed to you from confidential records which are protected by state law. State law prohibits you from making any further disclosure of this information without the specific written consent of the person to whom it pertains, or as otherwise permitted by law. Any unauthorized further disclosure in violation of state law may result in a fine or nursing home sentence or both. A general authorization for the release of medical or other information is NOT sufficient authorization for further disc losure. Family History Family Member Name Family Member Gender Family Member Status Date o f Status Description Data Source(s) Unknown Unknown Problem [facility] ([facility]) Unknown Female Problem [facility] ([facility]) Unknown Male Problem [facility] ([facility]) Encounters Encounter Providers Location Date Indications Data Source(s ) Outpatient Attender: Vineet SANCHEZ Family Medicine [facility] 04/08/2021 11:20:00 AM EDT [facility] ([facility]) Outpatient Attender: Vineet SANCHEZ Family Medicine [facility] 08/18/2020 08:00:00 AM EST [facility] ([facility]) Medications No Information Insurance Providers Payer name Policy type / Coverage type Policy ID Covered constitution party ID Covered constitution party's relationship to fitch Policy Fitch Plan Information [employer] [facility] FEDERAL [id number] [place]2 [id number] [facility] [employer] PROGRAM [id number] [facility] [id number] [facility] [facility] [employer] PROGRAM [id number] [employer] Part B [id number] Self Z [id number] [employer] Part B [id number] Self [id number] [employer] Med[employer] Part B [id number] Self Z [id number] [employer] Medig[employer] Part B [id number] Self Z [id number] [employer] HLTH (pr) Medigap Part B [id number] Self [id number] [facility] Maintenance Organization (O) [id number] Family Dependent [id number] [employer] GENERIC C [id number] Spouse [id number] EXCELLUS C [id number] Spouse [id number] EXCELLUS BCBS [id number] Spo [id number] BS Federal Commercial [id number] Family Dependent [id number] BS Federal Commercial [id number] Family Dependent [id number] BS [facility] Commercial [id number] Family Dependent [id number] BS [facility] Commercial [id number] Family Dependent [id number] BS Fed Plan Commercial [id number] Family Dependent [id number] BS Fed Plan Commercial [id number] Family Dependent [id number] [employer] Commercial [id number] Family Dependent R6 [id number] BC BS [place] FEDERAL B [id number] O [id number] [employer] Commercial [id number] Family Dependent R6 [id number] [employer] Commercial [id number] Family Dependent R6 [id number] [employer] Commercial [id number] Family Dependent R6 [id number] [facility] Commercial [id number] Family Dependent R6 [id number] ANA M [facility] PI BS Fed Plan Commercial [id number] Family Dependent [id number] [place] [id number] SP [id number] [facility] Federal Plan Commercial [id number] Family Dependent [id number] [facility] Commercial [id number] Family Dependent [id number] Fed Plan Commercial [id number] Family Dependent [id number] Problems, Conditions, and Diagnoses Code Display Name Description Problem Type Effective Dates Data Source(s) [id number] Chronic lymphoid leukemia in remission C hronic lymphoid leukemia in remission Problem 10/27/2020 12:00:00 AM EDT [facility] ([facility]) Surgeries/Procedures Procedure Description Date Indications Data Source(s) PERIODIC PREVENTIVE MED EST PATIENT 40-64YRS 12:00:00 AM EDT [facility] ([facility]) Results ID Date Data Source [id number] 04/09/2021 08:20:00 AM EDT [facility] ([facility]) Name Value Range Interpretation Code Description Data Bella rce(s) Supporting Document(s) Thyroid Stimulating Hormone 1.760 uIU/ML 0.358-3.740 Norm al (applies to non- numeric results) [facility] ([facility]) Free T4 1.35 ng/dL 0.76-1.46 Normal (applies to non-numeric resul ts) [facility] ([facility]) ID Date Data Source [id number] 04/09/2021 08:20:00 AM EDT [facility] ([facility]) Name Value Range Interpretation Code Description Data Bella rce(s) Supporting Document(s) Triglycerides Level 59 mg/dL Normal (applies to non-nume celi results) [facility] ([facility]) Cholesterol Level 192 mg/dL Normal (applies to non-numeri c results) [facility] ([facility]) HDL Cholesterol 62 mg/dL Normal (applies to non-numeric results) [facility] ([facility]) LDL Cholesterol 118 mg/dL Above high normal [facility] ([facility]) Non-HDL-C 130 mg/dL Normal (applies to non-numeric resul ts) [facility] ([facility]) Cholesterol Risk Ratio 3.096 Normal (applies to non-n umeric results) [facility] ([facility]) ID Date Data Source [id number] 04/09/2021 08:20:00 AM EDT [facility] ([facility]) Name Value Range Interpretation Code Description Data Bella rce(s) Supporting Document(s) PSA Total 3.4 ng/mL 0.0-4.0 Normal (applies to non-numeric resul ts) [facility] ([facility]) Elisabeth ECLIA methodology. . According to the [employer], Serum PSA should decrease and [...] the presence or absence of malignant disease. PSA Comment Laboratory test result Normal (applies to non- numeric results) [facility] ([facility]) . The percent free PSA is performed on a reflex basis only when the total PSA is between 4.0 and 10.0 ng/mL. Performed at: RN - [facility] [address] [id number] Sales Representative Trainee: Paulina Sheehan MD, Phone: [phone] ID Date Data Source [id number] 04/09/2021 08:20:00 AM EDT [facility] ([facility]) Name Value Range Interpretation Code Description Data Bella rce(s) Supporting Document(s) Blood Urea Nitrogen 16 mg/dL 7-18 Normal (applies to non-nume celi results) [facility] ([facility]) Glucose, Fasting 86 mg/dL 70-100 Normal (applies to non-numeric results) [facility] ([facility]) Creatinine For GFR 0.78 mg/dL 0.70-1.30 Normal (applies to non -numeric results) [facility] ([facility]) Sodium Level 139 meq/L 136-145 Normal (applies to non-numeric res ults) [facility] ([facility]) Glomerular Filtration Rate Laboratory test result Normal (applies to non- numeric results) [facility]) <content>Units are mL/min/1.73 m2</content>
<content></content>
<content>Chronic Kidney Disease Staging per NKF:</content>
<content></content>
<content>Stage I & II GFR >=60 Normal to Mildly Decreased</content>
<content>Stage III GFR 30-59 Moderately Decreased</content>
<content>Stage IV GFR 15-29 Severely Decreased</content>
<content>Stage V GFR <15 Very Little GFR Left</content>
<content>ESRD GFR <15 on CONCESSION MANAGER</content>
<content></content> Carbon Dioxide Level 27 meq/L 21-32 Normal (applies to non-num joi results) [facility] ([facility]) Chloride Level 107 meq/L 98-107 Normal (applies to non-numeric r esults) [facility] ([facility]) Potassium Serum 4.3 meq/L 3.5-5.1 Normal (applies to non-numeric results) [facility] ([facility]) Calcium Level 9.0 mg/dL 8.8-10.2 Normal (applies to non-numeric re sults) [facility] ([facility]) Anion Gap 5 meq/L 8-16 Below low normal [facility] ( [facility]) Ast/Sgot 18 U/L 7-37 Normal (applies to non-numeric resul ts) [facility] ([facility]) Alkaline Phosphatase 61 U/L 45-117 Normal (applies to non-num joi results) [facility] ([facility]) Alt/SGPT 35 U/L 12-78 Normal (applies to non-numeric resul ts) [facility] ([facility]) Total Protein 6.8 GM/DL 6.4-8.2 Normal (applies to non-numeric re sults) [facility] ([facility]) Albumin 4.0 GM/DL 3.2-5.2 Normal (applies to non-numeric resul ts) [facility] ([facility]) Bilirubin,Total 1.0 mg/dL 0.2-1.0 Normal (applies to non-numeric results) [facility] ([facility]) Albumin/Globulin Ratio 1.4 Normal (applies to non-n umeric results) [facility]) ID Date Data Source [id number] 10/24/2020 10:50:00 AM EDT [facility] ([facility]) Name Value Range Interpretation Code Description Data Bella rce(s) Supporting Document(s) PSA Total 3.4 ng/mL 0.0-4.0 Normal (applies to non-numeric resul ts) [facility]) Elisabeth ECLIA methodology. . According to the [employer], Serum PSA should decrease and [...] the presence or absence of malignant disease. PSA Comment Laboratory test result Normal (applies to non- numeric results) [facility]) . The percent free PSA is performed on a reflex basis only when the total PSA is between 4.0 and 10.0 ng/mL. Performed at: RN - [facility] [address] [id number] Sales Representative Trainee: Paulina Sheehan MD, Phone: [phone] ID Date Data Source [id number] 10/24/2020 10:50:00 AM EDT [facility] ([facility]) Name Value Range Interpretation Code Description Data Bella rce(s) Supporting Document(s) Thyrotropin [Units/volume] in Serum or Plasma 1.100 uIU/ML 0. 358-3.740 Normal (applies to non-numeric results) [facility] ([facility]) Thyroxine (T4) free [Mass/volume] in Serum or Plasma 1.27 ng/dL 0.76-1.46 Normal (applies to non-numeric results) [facility] ([facility]) ID Date Data Source [id number] 10/24/2020 10:50:[address] [facility]) Name Value Range Interpretation Code Description Data Bella rce(s) Supporting Document(s) Triglycerides Level 85 mg/dL Normal (applies to non-nume celi results) [facility] ([facility]) Cholesterol Level 184 mg/dL Normal (applies to non-numeri c results) [facility] ([facility]) Non-HDL-C 134 mg/dL Normal (applies to non-numeric resul ts) [facility] ([facility]) LDL Cholesterol 117 mg/dL Above high normal [facility] ([facility]) HDL Cholesterol 50 mg/dL Normal (applies to non-numeric results) [facility] ([facility]) Cholesterol Risk Ratio 3.680 Normal (applies to non-n umeric results) [facility] ([facility]) ID Date Data Source [id number] 10/24/2020 10:50:00 AM EDT [facility] ([facility]) Name Value Range Interpretation Code Description Data Bella rce(s) Supporting Document(s) Creatinine For GFR 0.84 mg/dL 0.70-1.30 Normal (applies to non -numeric results) [facility] ([facility]) Glucose, Fasting 111 mg/dL 70-100 Above high normal [facility] Blood Urea Nitrogen 17 mg/dL 7-18 Normal (applies to non-nume celi results) [facility] ([facility]) Sodium Level 140 meq/L 136-145 Normal (applies to non-numeric res ults) [facility] ([facility]) Potassium Serum 4.2 meq/L 3.5-5.1 Normal (applies to non-numeric results) [facility] ([facility]) Glomerular Filtration Rate Laboratory test result Normal (applies to non- numeric results) [facility] ([facility]) <content>Units are mL/min/1.73 m2</content>
<content></content>
<content>Chronic Kidney Disease Staging per NKF:</content>
<content></content>
<content>Stage I & II GFR >=60 Normal to Mildly Decreased</content>
<content>Stage III GFR 30- 59 Moderately Decreased</content>
<content>Stage IV GFR 15-29 Severely Decreased</content>
<content>Stage V GFR <15 Very Little GFR Left</content>
<content>ESRD GFR <15 on CONCESSION MANAGER</content>
<content></content> Carbon Dioxide Level 27 meq/L 21-32 Normal (applies to non-num joi results) [facility] ([facility]) Anion Gap 4 meq/L 8-16 Below low normal [facility] ( [facility]) Chloride Level 109 meq/L 98-107 Above high normal [facility] ([facility]) Calcium Level 9.2 mg/dL 8.8-10.2 Normal (applies to non-numeric re sults) [facility] ([facility]) Ast/Sgot 13 U/L 7-37 Normal (applies to non-numeric resul ts) [facility] ([facility]) Alt/SGPT 36 U/L 12-78 Normal (applies to non-numeric resul ts) [facility] ([facility]) Alkaline Phosphatase 77 U/L 45-117 Normal (applies to non-num joi results) [facility] ([facility]) Bilirubin,Total 0.7 mg/dL 0.2-1.0 Normal (applies to non-numeric results) [facility] ([facility]) Albumin 3.8 GM/DL 3.2-5.2 Normal (applies to non-numeric resul ts) [facility] ([facility]) Albumin/Globulin Ratio 1.2 Normal (applies to non-n umeric results) [facility] ([facility]) Total Protein 6.9 GM/DL 6.4-8.2 Normal (applies to non-numeric re sults) [facility] ([facility]) ID Date Data Source [id number] 10/24/2020 10:50:00 AM EDT [facility] ([facility]) Name Value Range Interpretation Code Description Data Bella rce(s) Supporting Document(s) White Blood Count 23.8 10 4.0-10.0 Above high normal [facility] ([facility]) A Pathologist review of this differentia l can help in the evaluation of a differential diagnosis. Please order a Pathologist Review (PERISM) if deemed necessary. Results are subject to change if a Pathologist Review is performed. Hematocrit 49.1 % 42.0-52.0 Normal (applies to non-numeric resul ts) [facility] ([facility]) Hemoglobin 16.1 g/dL 13.5-17.5 Normal (applies to non-numeric resul ts) [facility] ([facility]) Red Blood Count 5.31 10 4.30-6.10 Normal (applies to non-numeric results) [facility] ([facility]) Mean Corpuscular Volume 92.5 fl 80.0-96.0 Normal ( applies to non-numeric results) [facility] ([facility]) Mean Corpuscular Hemoglobin 30.3 pg 27.0-33.0 Norm al (applies to non-numeric results) [facility] ([facility]) Mean Corpuscular HGB Conc 32.8 g/dL 32.0-36.5 Normal (applies to non-numeric results) [facility] ([facility]) Red Cell Distribution Width 12.4 % 11.5-14.5 Norm al (applies to non-numeric results) [facility] ([facility]) Lymph % 83.7 % 24.0-44.0 Above high normal [facility] ([facility]) Neutrophils % 12.5 % 36.0-66.0 Below low normal [facility] ([facility]) Platelet Count, Automated 267 10 150-450 Normal (applies to non-numeric results) [facility] ([facility]) Baso % 0.3 % 0.0-1.0 Normal (applies to non-numeric resul ts) [facility] ([facility]) Eos % 1.1 % 0.0-3.0 Normal (applies to non-numeric resul ts) [facility] ([facility]) [place] % 2.2 % 2.0-8.0 Normal (applies to non-numeric resul ts) [facility] ([facility]) Neutrophils # 3.0 10 1.5-8.5 Normal (applies to non-numeric re sults) [facility] ([facility]) Immature Granulocyte % 0.2 % 0-3.0 Normal (applies to non-n umeric results) [facility] ([facility]) Nucleated Red Blood Cell % 0.0 % 0-0 Normal (applies to n on-numeric results) [facility] ([facility]) Eos # 0.3 10 0.0-0.5 Normal (applies to non-numeric resul ts) [facility] ([facility]) [place] # 0.5 10 0.0-0.8 Normal (applies to non-numeric resul ts) [facility] ([facility]) Lymph # 20.0 10 1.5-5.0 Above high normal [facility] ([facility]) Baso # 0.1 10 0.0-0.2 Normal (applies to non-numeric resul ts) [facility] ([facility]) Procedure Social History Code Duration Value Status Description Data Source(s ) Smoking 04/08/2021 12:00:00 AM EDT Patient has never smoked co mpleted Patient has never smoked [facility] ([facility]) Vital Signs ID Date Data Source UNK Name Value Range Interpretation Code Description Data Source(s) Heart rate 83 /min 83 /min [facility] ([facility]) Respiratory rate 18 /min 18 /min [facility] ( [facility]) [place] body weight 130 [lb_av] 130 [lb_av] [facility] [facility] Body temperature 98.3 [degF] 98.3 [degF] [facility] ([facility]) Systolic blood pressure 124 mm[Hg] 124 mm[Hg] M EDENT ([facility]) Diastolic blood pressure 68 mm[Hg] 68 mm[Hg] [facility] ([facility]) Body height 64.8 [in_i] 64.8 [in_i] [facility] ([facility]) 5'4.80" Body weight 164.25 [lb_av] 164.25 [lb_av] MEDEN T ([facility]) Body mass index (BMI) [Ratio] 27.5 kg/m2 27.5 k g/m2 [facility] ([facility]) Oxygen saturation in Arterial blood by Pulse oximetry 96 % 96 % [facility] ([facility]) Body weight 168.00 [lb_av] 168.00 [lb_av] [facility] T ([facility]) Diastolic blood pressure 72 mm[Hg] 72 mm[Hg] [facility] ([facility]) Heart rate 78 /min 78 /min [facility] Body temperature 98.0 [degF] 98.0 [degF] [facility] ([facility]) Oxygen saturation in Arterial blood by Pulse oximetry 96 % 96 % [facility] ([facility]) Systolic blood pressure 126 mm[Hg] 126 mm[Hg] [facility] Body height 64.8 [in_i] 64.8 [in_i] [facility] ([facility]) 5'4.80" Body mass index (BMI) [Ratio] 28.1 kg/m2 28.1 k g/m2 [facility] ([facility]) Respiratory rate 18 /min 18 /min [facility] ( [facility]) Negley body weight 130 [lb_av] 130 [lb_av] MED[facility] T ([facility])
[2021-05-02] MEDS ORDERED: BENZONATATE 100MG CAPSULE PO ONE (08:25)
--- NOTE | 2021-05-02 09:23 | REP ---
INDICATION: cough x 8days. COMPARISON: 04/22/2008 TECHNIQUE: Portable FINDINGS: The technique utilized in obtaining the radiograph has magnified the cardiac silhouette and accentuated the interstitial markings. Mild bibasilar curvilinear opacities have developed since the last exam. The pleural angles are sharp the heart is not enlarged. The osseous structures are within normal limits. IMPRESSION: Bibasilar subsegmental atelectatic changes or early pneumonia. <Electronically signed by Gentry Medrano > 05/02/21 0929
--- OUTSIDE RECORDS SUMMARY | 2021-05-02 09:59 | CCD ---
Author Author [facility] Organization [facility] Address Unknown Phone Unavailable Care Team Providers Care Photoresist Printer Name Role Phone Carmelina, Vineet PA Unavailable [...] is protected by Article 27-F of the [facility] Public Health law. If you continue you may have access to information: Regarding HIV / AIDS; Provided by facilities licensed or operated by the [facility] Office of Mental Health; or Provided by the [facility] Office for People With Developmental Disabilities. If such information is present, then the following [facility] mandated warning applies: This information has been [...] law may result in a fine or penitentiary sentence or both. A general authorization for [...] Problem [facility] ([facility]) Encounters Encounter Providers Location Date Indications Data Source(s ) Outpatient Attender: Vineet SANCHEZ Family Medicine [facility] 04/08/2021 11:20:00 AM EDT [facility] ([facility]) Outpatient Attender: Vineet SANCHEZ Family Medicine [facility] 08/18/2020 08:00:00 AM EST [facility] ([facility]) Medications No Information Insurance Providers Payer name Policy type / Coverage type Policy ID Covered alliance party ID Covered alliance party's relationship to fitch Policy Fitch Plan Information [employer] [facility] FEDERAL [id number] [id number] [facility] [employer] [facility] [id number] [facility] [id number] [facility] [employer] [employer] PRO[employer] [id number] [employer] Med[employer] Part B [id number] Self Z [id number] [employer] Med[employer] Part B [id number] Self [id number] [employer] Med[employer] Part B [id number] Self Z [id number] [employer] Med[employer] Part B [id number] Self Z [id number] [employer] HLTH (pr) Medigap Part B [id number] Self [id number] [facility] Health Maintenance Organization (O) [id number] Family Dependent [id number] [employer] GENERIC C [id number] Spouse [id number] EXCELLUS C [id number] Spouse [id number] [employer]BS [id number] Spo [id number] BS Federal Commercial [id number] Family Dependent [id number] BS Federal Commercial [id number] Family Dependent [id number] BS [facility] Commercial [id number] Family Dependent [id number] BS [facility] Commercial [id number] Family Dependent [id number] BS Fed Plan Commercial [id number] Family Dependent [id number] BS Fed Plan Commercial [id number] Family Dependent [id number] [employer] Commercial [id number] Family Dependent R6 [id number] BC BS [place] [facility] FEDERAL B [id number] O [id number] [employer] Commercial [id number] Family Dependent R6 [id number] [employer] Commercial [id number] Family Dependent R6 [id number] [employer] Commercial [id number] Family Dependent R6 [id number] [facility] Commercial [id number] Family Dependent R6 [id number] ANA M [facility] PI PI BS Fed Plan Commercial [id number] Family Dependent [id number] [employer] NO FAULT [id number] SP [id number] [facility] Federal Plan Commercial [id number] Family Dependent [id number] [facility] Commercial [id number] Family Dependent R6 [id number] Fed Plan Commercial [id number] Family Dependent [id number] Problems, Conditions, and Diagnoses Code Display Name Description Problem Type Effective Dates Data Source(s) 86232573 Chronic lymphoid leukemia in remission C hronic lymphoid leukemia in remission Problem 10/27/2020 12:00:00 AM EDT [facility] ([facility]) Surgeries/Procedures Procedure Description Date Indications Data Source(s) PERIODIC PREVENTIVE MED EST PATIENT 40-64YRS 12:00:00 AM EDT [facility] ([facility]) Results ID Date Data Source [id number] 04/09/2021 08:20:00 AM EDT [facility] ([facility]) Name Value Range Interpretation Code Description Data Bella rce(s) Supporting Document(s) Thyroid Stimulating Hormone 1.760 uIU/ML 0.358-3.740 Norm al (applies to non- numeric results) [facility] ([facility]) Free T4 1.35 ng/dL 0.76-1.46 Normal (applies to non-numeric resul ts) [facility] ([facility]) ID Date Data Source [id number] 04/09/2021 08:20:00 AM EDT [facility] ([facility]) Name Value Range Interpretation Code Description Data Bella rce(s) Supporting Document(s) Triglycerides Level 59 mg/dL Normal (applies to non-nume celi results) [facility] ([facility]) Cholesterol Level 192 mg/dL Normal (applies to non-numeri c results) [facility] ([facility]) HDL Cholesterol 62 mg/dL Normal (applies to non-numeric results) [facility] ([facility]) LDL Cholesterol 118 mg/dL Above high normal ME DENT ([facility]) Non-HDL-C 130 mg/dL Normal (applies to non-numeric resul ts) [facility] ([facility]) Cholesterol Risk Ratio 3.096 Normal (applies to non-n umeric results) [facility] ([facility]) ID Date Data Source [id number] 04/09/2021 08:20:00 AM EDT [facility] ([facility]) Name Value Range Interpretation Code Description Data Bella rce(s) Supporting Document(s) PSA Total 3.4 ng/mL 0.0-4.0 Normal (applies to non-numeric resul ts) [facility] ([facility]) Elisabeth ECLIA methodology. . According to the [place] [employer], Serum PSA should decrease and [...] result Normal (applies to non- numeric results) [facility] ([facility]) . The percent free PSA is performed on a reflex basis only when the total PSA is between 4.0 and 10.0 ng/mL. Performed at: RN - [facility] [address] [id number] Prep Person: Paulina Sheehan MD, Phone: [phone] ID Date Data Source [id number] 04/09/2021 08:20:00 AM EDT [facility] ([facility]) Name Value Range Interpretation Code Description Data Bella rce(s) Supporting Document(s) Blood Urea Nitrogen 16 mg/dL 7-18 Normal (applies to non-nume celi results) [facility] ([facility]) Glucose, Fasting 86 mg/dL 70-100 Normal (applies to non-numeric results) [facility] ([facility]) Creatinine For GFR 0.78 mg/dL 0.70-1.30 Normal (applies to non -numeric results) [facility] ([facility]) Sodium Level 139 meq/L 136-145 Normal (applies to non-numeric res ults) [facility] ([facility]) Glomerular Filtration Rate Laboratory test result Normal (applies to non- numeric results) [facility]) <content>Units are mL/min/1.73 m2</content>
<content></content>
<content>Chronic Kidney Disease Staging per NKF:</content>
<content></content>
<content>Stage I & II GFR >=60 Normal to Mildly Decreased</content>
<content>Stage III GFR 30-59 Moderately Decreased</content>
<content>Stage IV GFR 15-29 Severely Decreased</content>
<content>Stage V GFR <15 Very Little GFR Left</content>
<content>ESRD GFR <15 on SECOND OFFICER</content>
<content></content> Carbon Dioxide Level 27 meq/L 21-32 Normal (applies to non-num joi results) [facility] ([facility]) Chloride Level 107 meq/L 98-107 Normal (applies to non-numeric r esults) [facility] ([facility]) Potassium Serum 4.3 meq/L 3.5-5.1 Normal (applies to non-numeric results) [facility] ([facility]) Calcium Level 9.0 mg/dL 8.8-10.2 Normal (applies to non-numeric re sults) [facility] ([facility]) Anion Gap 5 meq/L 8-16 Below low normal [facility] ( [facility]) Ast/Sgot 18 U/L 7-37 Normal (applies to non-numeric resul ts) [facility] ([facility]) Alkaline Phosphatase 61 U/L 45-117 Normal (applies to non-num joi results) [facility] ([facility]) Alt/SGPT 35 U/L 12-78 Normal (applies to non-numeric resul ts) [facility] ([facility]) Total Protein 6.8 GM/DL 6.4-8.2 Normal (applies to non-numeric re sults) [facility] ([facility]) Albumin 4.0 GM/DL 3.2-5.2 Normal (applies to non-numeric resul ts) [facility] ([facility]) Bilirubin,Total 1.0 mg/dL 0.2-1.0 Normal (applies to non-numeric results) [facility] ([facility]) Albumin/Globulin Ratio 1.4 Normal (applies to non-n umeric results) [facility]) ID Date Data Source [id number] 10/24/2020 10:50:00 AM EDT [facility] ([facility]) Name Value Range Interpretation Code Description Data Bella rce(s) Supporting Document(s) PSA Total 3.4 ng/mL 0.0-4.0 Normal (applies to non-numeric resul ts) [facility]) Elisabeth ECLIA methodology. . According to the [place] [employer], Serum PSA should decrease and [...] result Normal (applies to non- numeric results) [facility]) . The percent free PSA is performed on a reflex basis only when the total PSA is between 4.0 and 10.0 ng/mL. Performed at: RN - [facility] [address] [id number] Prep Person: Paulina Sheehan MD, Phone: [phone] ID Date Data Source [id number] 10/24/2020 10:50:00 AM EDT [facility] ([facility]) Name Value Range Interpretation Code Description Data Bella rce(s) Supporting Document(s) Thyrotropin [Units/volume] in Serum or Plasma 1.100 uIU/ML 0. 358-3.740 Normal (applies to non-numeric results) [facility] ([facility]) Thyroxine (T4) free [Mass/volume] in Serum or Plasma 1.27 ng/dL 0.76-1.46 Normal (applies to non-numeric results) [facility] ([facility]) ID Date Data Source [id number] 10/24/2020 10:50:00 AM EDT [facility]) Name Value Range Interpretation Code Description Data Bella rce(s) Supporting Document(s) Triglycerides Level 85 mg/dL Normal (applies to non-nume celi results) [facility] ([facility]) Cholesterol Level 184 mg/dL Normal (applies to non-numeri c results) [facility] ([facility]) Non-HDL-C 134 mg/dL Normal (applies to non-numeric resul ts) [facility] ([facility]) LDL Cholesterol 117 mg/dL Above high normal [facility] ([facility]) HDL Cholesterol 50 mg/dL Normal (applies to non-numeric results) [facility] ([facility]) Cholesterol Risk Ratio 3.680 Normal (applies to non-n umeric results) [facility] ([facility]) ID Date Data Source [id number] 10/24/2020 10:50:00 AM EDT [facility] ([facility]) Name Value Range Interpretation Code Description Data Bella rce(s) Supporting Document(s) Creatinine For GFR 0.84 mg/dL 0.70-1.30 Normal (applies to non -numeric results) [facility] ([facility]) Glucose, Fasting 111 mg/dL 70-100 Above high normal [facility] Blood Urea Nitrogen 17 mg/dL 7-18 Normal (applies to non-nume celi results) [facility] ([facility]) Sodium Level 140 meq/L 136-145 Normal (applies to non-numeric res ults) [facility] ([facility]) Potassium Serum 4.2 meq/L 3.5-5.1 Normal (applies to non-numeric results) [facility] ([facility]) Glomerular Filtration Rate Laboratory test result Normal (applies to non- numeric results) [facility] ([facility]) <content>Units are mL/min/1.73 m2</content>
<content></content>
<content>Chronic Kidney Disease Staging per NKF:</content>
<content></content>
<content>Stage I & II GFR >=60 Normal to Mildly Decreased</content>
<content>Stage III GFR 30- 59 Moderately Decreased</content>
<content>Stage IV GFR 15-29 Severely Decreased</content>
<content>Stage V GFR <15 Very Little GFR Left</content>
<content>ESRD GFR <15 on SECOND OFFICER</content>
<content></content> Carbon Dioxide Level 27 meq/L 21-32 Normal (applies to non-num joi results) [facility] ([facility]) Anion Gap 4 meq/L 8-16 Below low normal [facility] ( [facility]) Chloride Level 109 meq/L 98-107 Above high normal [facility] ([facility]) Calcium Level 9.2 mg/dL 8.8-10.2 Normal (applies to non-numeric re sults) [facility] ([facility]) Ast/Sgot 13 U/L 7-37 Normal (applies to non-numeric resul ts) [facility] ([facility]) Alt/SGPT 36 U/L 12-78 Normal (applies to non-numeric resul ts) [facility] ([facility]) Alkaline Phosphatase 77 U/L 45-117 Normal (applies to non-num joi results) [facility] ([facility]) Bilirubin,Total 0.7 mg/dL 0.2-1.0 Normal (applies to non-numeric results) [facility] ([facility]) Albumin 3.8 GM/DL 3.2-5.2 Normal (applies to non-numeric resul ts) [facility] ([facility]) Albumin/Globulin Ratio 1.2 Normal (applies to non-n umeric results) [facility] ([facility]) Total Protein 6.9 GM/DL 6.4-8.2 Normal (applies to non-numeric re sults) [facility] ([facility]) ID Date Data Source [id number] 10/24/2020 10:50:00 AM EDT [facility] ([facility]) Name Value Range Interpretation Code Description Data Bella rce(s) Supporting Document(s) White Blood Count 23.8 10 4.0-10.0 Above high normal [facility] ([facility]) A Pathologist review of this differentia l can help in the evaluation of a differential diagnosis. Please order a Pathologist Review (PERISM) if deemed necessary. Results are subject to change if a Pathologist Review is performed. Hematocrit 49.1 % 42.0-52.0 Normal (applies to non-numeric resul ts) [facility] ([facility]) Hemoglobin 16.1 g/dL 13.5-17.5 Normal (applies to non-numeric resul ts) [facility] ([facility]) Red Blood Count 5.31 10 4.30-6.10 Normal (applies to non-numeric results) [facility] ([facility]) Mean Corpuscular Volume 92.5 fl 80.0-96.0 Normal ( applies to non-numeric results) [facility] ([facility]) Mean Corpuscular Hemoglobin 30.3 pg 27.0-33.0 Norm al (applies to non-numeric results) [facility] ([facility]) Mean Corpuscular HGB Conc 32.8 g/dL 32.0-36.5 Normal (applies to non-numeric results) [facility] ([facility]) Red Cell Distribution Width 12.4 % 11.5-14.5 Norm al (applies to non-numeric results) [facility] ([facility]) Lymph % 83.7 % 24.0-44.0 Above high normal [facility] ([facility]) Neutrophils % 12.5 % 36.0-66.0 Below low normal [facility] ([facility]) Platelet Count, Automated 267 10 150-450 Normal (applies to non-numeric results) [facility] ([facility]) Baso % 0.3 % 0.0-1.0 Normal (applies to non-numeric resul ts) [facility] ([facility]) Eos % 1.1 % 0.0-3.0 Normal (applies to non-numeric resul ts) [facility] ([facility]) [facility] % 2.2 % 2.0-8.0 Normal (applies to non-numeric resul ts) [facility] ([facility]) Neutrophils # 3.0 10 1.5-8.5 Normal (applies to non-numeric re sults) [facility] ([facility]) Immature Granulocyte % 0.2 % 0-3.0 Normal (applies to non-n umeric results) [facility] ([facility]) Nucleated Red Blood Cell % 0.0 % 0-0 Normal (applies to n on-numeric results) [facility] ([facility]) Eos # 0.3 10 0.0-0.5 Normal (applies to non-numeric resul ts) [facility] ([facility]) [facility] # 0.5 10 0.0-0.8 Normal (applies to non-numeric resul ts) [facility] ([facility]) Lymph # 20.0 10 1.5-5.0 Above high normal [facility] ([facility]) Baso # 0.1 10 0.0-0.2 Normal (applies to non-numeric resul ts) [facility] ([facility]) Procedure Social History Code Duration Value Status Description Data Source(s ) Smoking 04/08/2021 12:00:00 AM EDT Patient has never smoked co mpleted Patient has never smoked [facility] ([facility]) Vital Signs ID Date Data Source UNK Name Value Range Interpretation Code Description Data Source(s) Heart rate 83 /min 83 /min [facility] ([facility]) Respiratory rate 18 /min 18 /min [facility] ( [facility]) Body temperature 98.3 [degF] 98.3 [degF] [facility] ([facility]) Astor body weight 130 [lb_av] 130 [lb_av] [facility] T ([facility]) Systolic blood pressure 124 mm[Hg] 124 mm[Hg] M [facility] ([facility]) Diastolic blood pressure 68 mm[Hg] 68 mm[Hg] [facility] ([facility]) Body height 64.8 [in_i] 64.8 [in_i] [facility]) 5'4.80" Body weight 164.25 [lb_av] 164.25 [lb_av] [facility] T ([facility]) Body mass index (BMI) [Ratio] 27.5 kg/m2 27.5 k g/m2 [facility] ([facility]) Oxygen saturation in Arterial blood by Pulse oximetry 96 % 96 % [facility] ([facility]) Diastolic blood pressure 72 mm[Hg] 72 mm[Hg] [facility] ([facility]) Body weight 168.00 [lb_av] 168.00 [lb_av] [facility] ([facility]) Heart rate 78 /min 78 /min [facility] ([facility]) Body temperature 98.0 [degF] 98.0 [degF] [facility] ([facility]) Oxygen saturation in Arterial blood by Pulse oximetry 96 % 96 % [facility] ([facility]) Systolic blood pressure 126 mm[Hg] 126 mm[Hg] M [facility] ([facility]) Body height 64.8 [in_i] 64.8 [in_i] [facility] ([facility]) 5'4.80" Body mass index (BMI) [Ratio] 28.1 kg/m2 28.1 k g/m2 [facility] ([facility]) Respiratory rate 18 /min 18 /min [facility] ( [facility]) Astor body weight 130 [lb_av] 130 [lb_av] [facility] T ([facility])
[2021-05-02] MEDS ORDERED: COMP1MIS24 XX (11:07)
[2021-05-02] MEDS ORDERED: PROAAER10 INH (11:07)
[2021-05-02] MEDS ORDERED: TESS100C PO (11:07)
[2021-05-02 11:46] VITALS: BP 122/72
--- NOTE | 2021-05-03 07:16 | ED PDOC ---
Post-Departure Follow-Up radiologyr eport faxed to Alisha Gaytan MD May 03, 2021 07:16
== END 2021-05-02 11:48 | disposition home or self-care (01) ==
LOC: M ED 05:59
DX: U07.1 COVID-19 (principal); R05.9 Cough, unspecified; C91.10 Chronic lymphocytic leukemia of B-cell type not having achieved remission; Z79.899 Other long term (current) drug therapy

== ENCOUNTER 2021-05-04 09:52 | Outpatient (CLI) | payer BC ==
--- NOTE | 2021-05-02 12:28 | IPNPDOC ---
Date Seen The patient was seen on 05/02/21. Progress Note SUBJECTIVE: Patient is a 60-year-old male with past medical history of CML (follows with [facility] oncology) who presented to [facility] emergency room with 1 week of shortness of breath, cough, fevers, myalgias, night sweats. The patient states he is unvaccinated and was recently exposed to Covid positive family members. The patient came in to be further evaluated in our ER. He was found to be Covid positive. The patient presented with risk factors including his immunosuppressive state. He will be set up with monoclonal antibody infusion by our service after the weekend. He denied chest pain, nausea, vomiting, abdominal pain. OBJECTIVE: VITAL SIGNS: Please see below PHYSICAL EXAMINATION: CONSTITUTIONAL: No acute distress, resting comfortably, AAO x 3 EYES: PERRLA, EOM intact HENT, MOUTH: Normocephalic, atraumatic, moist mucous membranes NECK: SUPPLE, no JVD, no lymphadenopathy, no carotid bruit CV: Regular rate and rhythm, S1S2 normal, no murmurs/rubs/gallops RESPIRATORY: Clear to auscultation bilaterally, no rales/rhonchi/wheezes GI: BS positive in 4 quadrants, soft, nontender, nondistended, no rebound or guarding, no organomegaly : Deferred MUSCULOSKELETAL: Normal ROM. No cyanosis, clubbing, swelling, joint deformity, extremity edema INTEGUMENTARY: Intact, no rashes, no lesions, no erythema NEUROLOGIC: Cranial Nerves II-XII are intact, no focal deficits PSYCHIATRIC: Mood and affect are normal CURRENT MEDICATIONS: Please see below LABORATORY DATA: None IMAGING: CXR: Bibasilar subsegmental atelectatic changes or early pneumonia. ASSESSMENT: 60-year-old male with past medical history of CML set up today for monoclonal antibody infusion after the weekend. PLAN: Covid 19 infection -Hemodynamically stable, saturating well on room air -No crackles or rhonchi appreciated on exam. -Chest x-ray above and should be monitored closely for any decrease in O2 saturation. Decompensation further the patient should return back and may require antibiotic treatment. -Monoclonal antibody infusion set up for after the weekend. -Covid 19 information packet given sedation from the emergency room. CML -Follows with [facility] DISPOSITION: Set up to receive monoclonal antibody infusion after this coming weekend. Autumn Aguilar MD May 02, 2021 12:28
[~2021-05-04] VITALS: Ht 167.6 cm; Wt 75.0 kg
[~2021-05-04 09:52] MED LIST changes: +ALBUTEROL 90 MCG/ACT 8GM HFA INHALER INH PRN; +ALBUTEROL SULFATE 2.5 MG/0.5 ML INH NEB SOLN INH PRN; +BAMLANIVIMAB 700 MG, ETESEVIMAB 1,400 MG in NS 250 ML IV ONE; +COMP1MIS24 XX; +EPINEPHrine INJ 1 MG/ML 1ML AMP IM PRN; +NS 1,000 ML IV SCH; +PROAAER10 INH; +TESS100C PO; +diphenhydrAMINE 50MG/ML VIAL (J1200) IV PRN; +methylPREDNISolone 125MG 2ML VIAL IV PRN
[2021-05-04] MEDS ORDERED: ALBUTEROL 90 MCG/ACT 8GM HFA INHALER INH PRN (10:15)
[2021-05-04] MEDS ORDERED: diphenhydrAMINE 50MG/ML VIAL (J1200) IV PRN (10:15)
[2021-05-04] MEDS ORDERED: ALBUTEROL SULFATE 2.5 MG/0.5 ML INH NEB SOLN INH PRN (10:15)
[2021-05-04] MEDS ORDERED: methylPREDNISolone 125MG 2ML VIAL IV PRN (10:20)
[2021-05-04] MEDS ORDERED: EPINEPHrine INJ 1 MG/ML 1ML AMP IM PRN (10:20)
[2021-05-04 10:50] VITALS: BP 133/84
[2021-05-04] MEDS ORDERED: BAMLANIVIMAB 700 MG, ETESEVIMAB 1,400 MG in NS 250 ML IV ONE (11:00)
[2021-05-04 11:20] VITALS: BP 115/65
[2021-05-04 11:50] VITALS: BP 115/66
[2021-05-04 12:47] VITALS: BP 129/81
== END 2021-05-04 12:47 | disposition home or self-care (01) ==
LOC: M OPCLI4 09:52
PROVIDERS: ATTEND Internal Medicine
DX: U07.1 COVID-19 (principal)

== ENCOUNTER → 2021-07-01 | Outpatient (CLI) | payer BC ==
[~2021-07-01] MED LIST changes: -ALBUTEROL 90 MCG/ACT 8GM HFA INHALER INH PRN; -ALBUTEROL SULFATE 2.5 MG/0.5 ML INH NEB SOLN INH PRN; -BAMLANIVIMAB 700 MG, ETESEVIMAB 1,400 MG in NS 250 ML IV ONE; -EPINEPHrine INJ 1 MG/ML 1ML AMP IM PRN; -NS 1,000 ML IV SCH; -diphenhydrAMINE 50MG/ML VIAL (J1200) IV PRN; -methylPREDNISolone 125MG 2ML VIAL IV PRN
[2021-07-01 14:17] LABS: BASO % 0.2 % (0.0-1.0); EOS # 0.2 10^3/uL (0.0-0.5); EOS % 1.2 % (0.0-3.0); HEMATOCRIT 48.4 % (42.0-52.0); LYMPH # 17.1 10^3/uL (1.5-5.0); LYMPH % 82.4 % (24.0-44.0); MEAN CORPUSCULAR HEMOGLOBIN 31.1 pg (27.0-33.0); MEAN CORPUSCULAR HGB CONC 33.1 g/dl (32.0-36.5); MONO # 0.7 10^3/uL (0.0-0.8); MONO % 3.1 % (2.0-8.0); NEUTROPHILS # 2.7 10^3/uL (1.5-8.5); PLATELET COUNT, AUTOMATED 245 10^3/uL (150-450); RED BLOOD COUNT 5.15 10^6/uL (4.30-6.10); WHITE BLOOD COUNT 20.8 10^3/uL (4.0-10.0)
[2021-07-01 14:29] LABS: ALBUMIN 4.1 GM/DL (3.2-5.2); ALT/SGPT 51 U/L (12-78); BILIRUBIN,TOTAL 0.7 MG/DL (0.2-1.0); BLOOD UREA NITROGEN 15 MG/DL (7-18); CALCIUM LEVEL 9.7 MG/DL (8.8-10.2); CARBON DIOXIDE LEVEL 29 MEQ/L (21-32); CHLORIDE LEVEL 106 MEQ/L (98-107); CREATININE FOR GFR 0.76 MG/DL (0.70-1.30); FERRITIN 122 NG/ML (26-388); FREE T4 1.31 NG/DL (0.76-1.46); GLOMERULAR FILTRATION RATE > 60.0 (>49); GLUCOSE, FASTING 94 MG/DL (70-100); IRON (FE) 149 UG/DL (65-175); PERCENT SATURATION 37.4 % (19.7-50.0); POTASSIUM SERUM 4.3 MEQ/L (3.5-5.1); SODIUM LEVEL 140 MEQ/L (136-145); TOTAL IRON BINDING CAPACITY 398 UG/DL (250-450); TOTAL PROTEIN 7.1 GM/DL (6.4-8.2)
== END ==
LOC: M PLALAB 11:46
PROVIDERS: ATTEND Family Medicine
DX: C91.11 Chronic lymphocytic leukemia of B-cell type in remission (principal); R42 Dizziness and giddiness

== ENCOUNTER → 2021-10-08 | Outpatient (CLI) | payer BC ==
[2021-10-08 10:27] LABS: HEMATOCRIT 47.8 % (42.0-52.0); HEMOGLOBIN 16.2 g/dl (13.5-17.5); MEAN CORPUSCULAR HEMOGLOBIN 31.3 pg (27.0-33.0); MEAN CORPUSCULAR HGB CONC 33.9 g/dl (32.0-36.5); MEAN CORPUSCULAR VOLUME 92.5 fl (80.0-96.0); PLATELET COUNT, AUTOMATED 232 10^3/uL (150-450); RED BLOOD COUNT 5.17 10^6/uL (4.30-6.10); WHITE BLOOD COUNT 28.5 10^3/uL (4.0-10.0)
[2021-10-08 11:07] LABS: ATYPICAL LYMPH 9 % (0-5); EOSINOPHILS 3 % (0-3); LYMPHOCYTES 80 % (16-44); NEUTROPHILS 8 % (28-66); SMUDGE CELLS 2+
[2021-10-08 11:08] LABS: PLATELET ESTIMATE NORMAL (NORMAL)
[2021-10-08 11:28] LABS: ALT/SGPT 36 U/L (12-78); BILIRUBIN,TOTAL 1.2 MG/DL (0.2-1.0); BLOOD UREA NITROGEN 16 MG/DL (7-18); CALCIUM LEVEL 8.9 MG/DL (8.8-10.2); CARBON DIOXIDE LEVEL 27 MEQ/L (21-32); CHLORIDE LEVEL 109 MEQ/L (98-107); CREATININE FOR GFR 0.74 MG/DL (0.70-1.30); GLOMERULAR FILTRATION RATE > 60.0 (>49); GLUCOSE, FASTING 93 MG/DL (70-100); LDH LACTATE DEHYDROGENASE 143 U/L (87-241); POTASSIUM SERUM 4.1 MEQ/L (3.5-5.1); SODIUM LEVEL 140 MEQ/L (136-145); TOTAL PROTEIN 6.5 GM/DL (6.4-8.2)
== END ==
LOC: M PLALAB 07:40
PROVIDERS: ATTEND Physician Assistant
DX: C91.11 Chronic lymphocytic leukemia of B-cell type in remission (principal)
CPT/HCPCS: 36415; 80053; 83615; 85025; G0103

== ENCOUNTER → 2022-01-19 | Outpatient (CLI) | payer BC ==
[2022-01-20 23:10] LABS: PSA % FREE 12.9 % (.); PSA FREE 0.53 ng/mL; PSA TOTAL 4.1 ng/mL (0.0-4.0)
== END ==
LOC: M PLALAB 10:04
PROVIDERS: ATTEND Nurse Practitioner Women's Health
DX: R97.20 Elevated prostate specific antigen [PSA] (principal)

== ENCOUNTER → 2022-03-25 | Outpatient (CLI) | payer BC | LOC: M WUC 10:28 | PROVIDERS: ATTEND Physician Assistant | DX: R91.8 Other nonspecific abnormal finding of lung field (principal); S23.41XA Sprain of ribs, initial encounter; X58.XXXA Exposure to other specified factors, initial encounter ==

== ENCOUNTER → 2022-04-14 | Outpatient (CLI) | payer BC ==
[2022-04-14 10:31] LABS: BASO # 0.1 10^3/uL (0.0-0.2); BASO % 0.3 % (0.0-1.0); EOS # 0.1 10^3/uL (0.0-0.5); EOS % 0.6 % (0.0-3.0); HEMOGLOBIN 15.9 g/dl (13.5-17.5); LYMPH # 19.5 10^3/uL (1.5-5.0); LYMPH % 86.4 % (24.0-44.0); MEAN CORPUSCULAR HEMOGLOBIN 30.8 pg (27.0-33.0); MEAN CORPUSCULAR HGB CONC 32.4 g/dl (32.0-36.5); MONO # 0.4 10^3/uL (0.0-0.8); MONO % 1.9 % (2.0-8.0); NEUTROPHILS # 2.4 10^3/uL (1.5-8.5); NEUTROPHILS % 10.7 % (36.0-66.0); PLATELET COUNT, AUTOMATED 223 10^3/uL (150-450); RED BLOOD COUNT 5.16 10^6/uL (4.30-6.10); WHITE BLOOD COUNT 22.5 10^3/uL (4.0-10.0)
[2022-04-14 10:59] LABS: ALT/SGPT 27 U/L (12-78); BLOOD UREA NITROGEN 14 MG/DL (7-18); CALCIUM LEVEL 9.3 MG/DL (8.8-10.2); CARBON DIOXIDE LEVEL 29 MEQ/L (21-32); CHLORIDE LEVEL 108 MEQ/L (98-107); CHOLESTEROL LEVEL 154 MG/DL (<200); CREATININE FOR GFR 0.85 MG/DL (0.70-1.30); FREE T4 1.37 NG/DL (0.76-1.46); GLOMERULAR FILTRATION RATE > 60.0 (>49); GLUCOSE, FASTING 96 MG/DL (70-100); HDL CHOLESTEROL 59 MG/DL (>40); LDL CHOLESTEROL 84 MG/DL (<100); NON-HDL-C 95 MG/DL; POTASSIUM SERUM 4.5 MEQ/L (3.5-5.1); SODIUM LEVEL 140 MEQ/L (136-145); TOTAL PROTEIN 6.6 GM/DL (6.4-8.2); TRIGLYCERIDES LEVEL 57 MG/DL (<150)
[2022-04-15 12:07] LABS: PSA % FREE 12.5 % (.); TESTOSTERONE FREE (DIRECT) 12.1 pg/mL (6.6-18.1)
== END ==
LOC: M PLALAB 08:15
PROVIDERS: ATTEND Family Medicine
DX: F52.21 Male erectile disorder (principal); C91.11 Chronic lymphocytic leukemia of B-cell type in remission; Z13.29 Encounter for screening for other suspected endocrine disorder; Z13.220 Encounter for screening for lipoid disorders

== ENCOUNTER → 2022-07-27 | Outpatient (CLI) | payer BC | LOC: M PLALAB 10:21 | PROVIDERS: ATTEND Nurse Practitioner Women's Health | DX: R97.20 Elevated prostate specific antigen [PSA] (principal) ==

== ENCOUNTER → 2022-11-11 | Outpatient (CLI) | payer BC | LOC: M PLAIMG 09:10 → M PLALAB 09:10 | PROVIDERS: ATTEND Family Medicine | DX: M54.2 Cervicalgia (principal) ==

== ENCOUNTER → 2022-12-09 | Outpatient (CLI) | payer BC | LOC: M WHC 08:43 | PROVIDERS: ATTEND Family Medicine | DX: M81.0 Age-related osteoporosis without current pathological fracture (principal) ==

== ENCOUNTER → 2022-12-15 | Outpatient (CLI) | payer BC | LOC: M RAD 06:23 | PROVIDERS: ATTEND Specialist | DX: R16.1 Splenomegaly, not elsewhere classified (principal) ==

== ENCOUNTER → 2023-08-04 | Outpatient (CLI) | payer BC ==
[2023-08-04 13:27] LABS: HEMATOCRIT 47.6 % (42.0-52.0); HEMOGLOBIN 16.2 g/dl (13.5-17.5); MEAN CORPUSCULAR HEMOGLOBIN 31.6 pg (27.0-33.0); MEAN CORPUSCULAR VOLUME 92.8 fl (80.0-96.0); PLATELET COUNT, AUTOMATED 243 10^3/uL (150-450); RED BLOOD COUNT 5.13 10^6/uL (4.30-6.10)
[2023-08-04 13:32] LABS: ALBUMIN 3.9 G/DL (3.2-5.2); ALKALINE PHOSPHATASE 62 U/L (46-116); ALT/SGPT 25 U/L (7.0-40); AST/SGOT 15 U/L (<34); BLOOD UREA NITROGEN 13 MG/DL (9-23); CALCIUM LEVEL 9.5 MG/DL (8.3-10.6); CARBON DIOXIDE LEVEL 28 MMOL/L (20-31); CHLORIDE LEVEL 108 MMOL/L (98-107); CHOLESTEROL LEVEL 173 MG/DL (<200); CHOLESTEROL RISK RATIO 3.22 (<5); CREATININE FOR GFR 0.71 MG/DL (0.70-1.30); GLOMERULAR FILTRATION RATE > 60.0 (>49); GLUCOSE, FASTING 101 MG/DL (74-106); HDL CHOLESTEROL 53.6 MG/DL (>40); LDL CHOLESTEROL 101.8 MG/DL (<100); NON-HDL-C 119.4 MG/DL; POTASSIUM SERUM 4.1 MMOL/L (3.5-5.1); PSA SCREENING 4.32 NG/ML (< 4.00); SODIUM LEVEL 137 MMOL/L (136-145); TOTAL PROTEIN 6.6 G/DL (5.7-8.2); TRIGLYCERIDES LEVEL 88 MG/DL (<150); WHITE BLOOD COUNT 30.9 10^3/uL (4.0-10.0)
[2023-08-04 13:35] LABS: FREE T4 1.63 NG/DL (0.89-1.76)
[2023-08-04 13:36] LABS: THYROID STIMULATING HORMONE 2.066 uIU/ML (0.55-4.78)
[2023-08-04 14:16] LABS: ATYPICAL LYMPH 76 % (0-5); LYMPHOCYTES 5 % (16-44); MONOCYTES 1 % (0-5); NEUTROPHILS 18 % (28-66); PLATELET ESTIMATE NORMAL (NORMAL); SMUDGE CELLS 2+
== END ==
LOC: M PLAIMG 08:00
PROVIDERS: ATTEND Family Medicine
DX: M54.42 Lumbago with sciatica, left side (principal)

== ENCOUNTER → 2024-08-06 | Outpatient (CLI) | payer BC ==
[2024-08-06 10:06] LABS: HEMATOCRIT 45.9 % (42.0-52.0); HEMOGLOBIN 15.2 g/dl (13.5-17.5); MEAN CORPUSCULAR HEMOGLOBIN 30.8 pg (27.0-33.0); MEAN CORPUSCULAR HGB CONC 33.1 g/dl (32.0-36.5); MEAN CORPUSCULAR VOLUME 92.9 fl (80.0-96.0); PLATELET COUNT, AUTOMATED 207 10^3/uL (150-450); RED BLOOD COUNT 4.94 10^6/uL (4.30-6.10)
[2024-08-06 10:34] LABS: ALBUMIN 3.4 G/DL (3.2-5.2); ALKALINE PHOSPHATASE 61 U/L (40-129); ALT/SGPT 39 U/L (7.0-40); AST/SGOT 18 U/L (<34); BILIRUBIN,TOTAL 1.1 MG/DL (0.3-1.2); BLOOD UREA NITROGEN 15 MG/DL (9-23); CALCIUM LEVEL 9.4 MG/DL (8.3-10.6); CARBON DIOXIDE LEVEL 29 MMOL/L (20-31); CHLORIDE LEVEL 106 MMOL/L (98-107); CHOLESTEROL LEVEL 202 MG/DL (<200); CHOLESTEROL RISK RATIO 3.53 (<5); CREATININE FOR GFR 0.74 MG/DL (0.70-1.30); GLOMERULAR FILTRATION RATE > 60.0 (>49); GLUCOSE, FASTING 97 MG/DL (74-106); HDL CHOLESTEROL 57.2 MG/DL (>40); LDL CHOLESTEROL 126.8 MG/DL (<100); NON-HDL-C 144.8 MG/DL; POTASSIUM SERUM 4.4 MMOL/L (3.5-5.1); SODIUM LEVEL 144 MMOL/L (136-145); TOTAL PROTEIN 6.3 G/DL (5.7-8.2); TRIGLYCERIDES LEVEL 90 MG/DL (<150)
[2024-08-06 10:36] LABS: FREE T4 1.76 NG/DL (0.89-1.76)
[2024-08-06 12:07] LABS: ATYPICAL LYMPH 44 % (0-5); EOSINOPHILS 2 % (0-3); LYMPHOCYTES 51 % (16-44); MONOCYTES 1 % (0-5); NEUTROPHILS 2 % (28-66)
[2024-08-06 12:08] LABS: PLATELET ESTIMATE NORMAL (NORMAL); SMUDGE CELLS 3+
[2024-08-07 14:55] LABS: WHITE BLOOD COUNT 36.5 10^3/uL (4.0-10.0)
== END ==
LOC: M PLALAB 08:59
PROVIDERS: ATTEND Family Medicine
DX: Z13.29 Encounter for screening for other suspected endocrine disorder (principal)

== ENCOUNTER → 2024-09-10 | Outpatient (CLI) | payer BC | LOC: M PLALAB 07:53 | DX: E88.819 Insulin resistance, unspecified (principal) ==

== ENCOUNTER 2024-10-25 07:12 | Day surgery (SDC) | payer BC ==
[~2024-10-25] VITALS: Ht 167.6 cm; Wt 67.6 kg
[~2024-10-25 07:12] MED LIST changes: +IVER1TAB PO
[2024-10-25] MEDS ORDERED: fentaNYL 100 MCG/2 ML INJECTION As Ordered ONE (08:02)
[2024-10-25] MEDS ORDERED: propofoL 200 MG/20 ML VIAL As Ordered ONE (08:03)
[2024-10-25] MEDS ORDERED: LIDOCAINE 2% 100MG/5ML SDV (FOR ANES.) As Ordered ONE (08:03)
[2024-10-25 08:45] VITALS: TEMP 97.6
[2024-10-25 09:09] VITALS: BP 107/64; O2SAT 95
== END 2024-10-25 09:15 | disposition home or self-care (01) ==
LOC: M OPP 07:12
PROVIDERS: ATTEND Surgery
DX: Z12.11 Encounter for screening for malignant neoplasm of colon (principal); K63.5 Polyp of colon; K64.2 Third degree hemorrhoids; K44.9 Diaphragmatic hernia without obstruction or gangrene; K29.70 Gastritis, unspecified, without bleeding; K29.80 Duodenitis without bleeding; K21.00 Gastro-esophageal reflux disease with esophagitis, without bleeding; K22.2 Esophageal obstruction; K30 Functional dyspepsia; Z79.899 Other long term (current) drug therapy
CPT/HCPCS: 43239; 45380; 88305; J3010